=== PATIENT | female | born 1955 | race Caucasian/White ===

== ENCOUNTER 2019-04-19 09:55 | Emergency (ER) | payer MEDICARE ==
[~2019-04-19] VITALS: Ht 170.2 cm; Wt 100.0 kg
[2019-04-19 10:06] VITALS: Ht 170.2 cm; Wt 100.0 kg
[2019-04-19] MEDS ORDERED: HORMONE MED (10:08)
[2019-04-19] MEDS ORDERED: CHOLESTEROL MED (10:08)
[2019-04-19] MEDS ORDERED: THYROID MED (10:08)
[2019-04-19] MEDS ORDERED: HTN MED (10:08)
[2019-04-19] MEDS ORDERED: HYDROCODONE (10:09)
[2019-04-19] MEDS ORDERED: HYDROCODON-ACE1 EA10 PO (10:55)
[2019-04-19] MEDS ORDERED: AUGMENTIN 875-11 TAB PO (10:55)
[2019-04-19 11:10] VITALS: BP 155/74
== END 2019-04-19 11:13 | disposition home or self-care (01) ==
LOC: D.ER 09:55
DX: L02.214 Cutaneous abscess of groin (principal); I10 Essential (primary) hypertension

== ENCOUNTER → 2019-11-19 12:33 | Outpatient (CLI) | payer MEDICARE ==
[2019-11-13 12:18] VITALS: BMI 32.9
--- NOTE | 2019-11-19 14:24 | NUR ---
TIME PERFORMED AT 1348 BY GAETANO PITTMAN(R) AND DR MONTANEZ. LUMBAR MYELOGRAM WAS NOT COMPLETED DUE TO PATIENT BEING UNCOOPERATIVE, CRISTINA WILL ADJUST, PATIENT DID NOT COMPLETE EXAM.
== END | disposition home or self-care (01) ==
LOC: D.RAD 12:33
PROVIDERS: ATTEND Neurological Surgery
DX: M54.16 Radiculopathy, lumbar region (principal); Z53.9 Procedure and treatment not carried out, unspecified reason

== ENCOUNTER 2019-12-06 08:00 | Outpatient (CLI) | payer MEDICARE ==
[~2019-12-06 08:00] MED LIST: AUGMENTIN 875-11 TAB PO; CHOLESTEROL MED; HORMONE MED; HTN MED; HYDROCODON-ACE1 EA10 PO; HYDROCODONE; LEVOTHYROXINE; METHOCARBAMOL750 MG NG; MUCINEX DM ER1 EAC1 PO; VOLTAREN25 MG PO
[2019-12-06] MEDS ORDERED: HYDROCHLOROTH12.5 M1 PO (12:58)
[2019-12-06] MEDS ORDERED: NORVASC10 MG PO (12:58)
[2019-12-06] MEDS ORDERED: ANORO ELLIPTA1 EACH INH (12:58)
[2019-12-06] MEDS ORDERED: ESTRACE1 MG PO (12:58)
[2019-12-06] MEDS ORDERED: CRESTOR20 MG PO (12:59)
[2019-12-06] MEDS ORDERED: TIROSINT50 MCG PO (12:59)
[2019-12-06] MEDS ORDERED: OMEPRAZOLE40 MG PO (12:59)
[2019-12-06 13:16] LABS: BASOPHILS 0.2 % (0-2); EOSINOPHILS 2.6 % (0-7); HEMATOCRIT 43.6 % (36.0-48.0); HEMOGLOBIN 14.8 g/dL (12-16); IMMATURE GRANULOCYTES 0.6 % (0-5); LYMPHOCYTES 35.3 % (15-50); MCH 30.8 pg (26.0-34.0); MCHC 33.9 g/dL (31.0-37.0); MCV 90.6 fL (80.0-100.0); MONOCYTES 8.3 % (2-11); RBC 4.81 10x6/uL (4.00-5.40); RDW 14.8 % (11.5-14.5); WBC 8.2 10x3/uL (4.8-10.8)
[2019-12-06 13:30] LABS: INR 0.98 (0.85-1.17)
[2019-12-06 13:31] LABS: APTT 34.1 SECONDS (22.8-39.4)
[2019-12-06 13:33] LABS: CALC OSMOLALITY 267 mosm/kg (275-300); CALCIUM 8.4 mg/dL (8.5-10.1); CARBON DIOXIDE 30.3 mmol/L (21.0-32.0); CHLORIDE - SERUM 96 mmol/L (98-107); CREATININE - SERUM 0.8 mg/dL (0.6-1.3); GLUCOSE 93 mg/dL (74-106); POTASSIUM - SERUM 4.3 mmol/L (3.5-5.1); SODIUM 134 mmol/L (136-145); UREA NITROGEN 13 mg/dL (7-18); eGFR NON AFRICAN AMERICAN 77 mL/min (90-120)
[2019-12-06 14:11] LABS: PLATELET COUNT 298 10x3/uL (130-400)
[2020-01-05 11:15] VITALS: BMI 36.8
== END 2019-12-06 08:01 | disposition home or self-care (01) ==
LOC: D.PAN 08:00 → D.SDCHOLD 12-11 08:30 → EDSTATUS 12-25 13:00 → D.SDCHOLD 12-25 13:00
PROVIDERS: Anesthesiology; ATTEND Surgery
DX: C18.9 Malignant neoplasm of colon, unspecified (principal); I10 Essential (primary) hypertension

== ENCOUNTER → 2019-12-25 10:11 | Outpatient (CLI) | payer MEDICARE ==
[2019-11-13 12:18] VITALS: BMI 32.9
[~2019-12-25 10:11] MED LIST changes: +ANORO ELLIPTA1 EACH INH; +CRESTOR20 MG PO; +ESTRACE1 MG PO; +HYDROCHLOROTH12.5 M1 PO; +NORVASC10 MG PO; +OMEPRAZOLE40 MG PO; +TIROSINT50 MCG PO
== END | disposition home or self-care (01) ==
LOC: D.HCCECHO 10:11
PROVIDERS: ATTEND Internal Medicine Interventional Cardiology
DX: I20.9 Angina pectoris, unspecified (principal)

== ENCOUNTER 2020-01-01 11:48 | Outpatient (CLI) | payer MEDICARE ==
[~2020-01-01] VITALS: Ht 170.2 cm; Wt 107.7 kg
--- NOTE | ~2020-01-01 | OP ---
PATIENT NAME: KEV LAMBERT MEDICAL RECORD: [id number] :[birth year] LOCATION:D.CAT ADMISSION DATE: SURGEON: AMBER GARCIA MD DATE OF OPERATION: 01/01/2020 PROCEDURE: Left heart catheterization, selective coronary angiography, right femoral artery approach. CATHETERS: A 5-Malagasy sheath, 5/4 left and right Dave, 5/4 pig. The procedure was well tolerated. The patient was returned to [place]. Sheath was removed. ExoSeal device placed. FINDINGS: Left ventriculography in 30-degree PATE view, normal wall motion, normal systolic function. CORONARY ANATOMY: LEFT MAIN: Left main is free of disease. LAD: Free of disease in the diagonal system. CIRCUMFLEX: Free of disease in the marginal system. RIGHT CORONARY ARTERY: Dominant artery, gives rise to PDA, free of disease. IMPRESSION: Normal left ventricular systolic function, normal coronary anatomy. TRANSINT:[id number] Voice Confirmation ID: [id number] DOCUMENT ID: [id number] AMBER GARCIA MD CC: [id number] DICTATION DATE: 01/01/20 1434 ACCOUNTANT MACHINE PROCESSING: 01/01/20 1708 DEP CLI 01/01/20 [place] [id number] [place] [id number]
--- NOTE | ~2020-01-01 | HEMODYNAMI ---
PATIENT:KEV LAMBERT MEDICAL RECORD: [id number] : 59 LOCATION:DREMA ADMISSION DATE: 01/01/20 Generatedon:01/01/202014:31 Patient name: KEV LAMBERT Patient #: [id number] SSN: [id number] : 1955 Date of study: 01/01/2020 Page: Of Hemodynamic Procedure Report Patient Data Patient Demographics Procedure consent was obtained First Name: KEV Gender: Female Last Name: PETRA : 1955 Patient #: [id number] Age: 64 year(s) Race: SSN: [id number] Additional ID: [id number] Contact details Address: [address] [place] [address] [place] State: [place] City: [facility] Zip code: [address] Past Medical History Allergies: No known allergies Admission Admission Data Admission Date: 01/01/2020 Admission Time: 11:48 Arrival Date: 01/01/2020 Arrival Time: 0:00 Admit Source: Other Insurance Payor: Medicare [facility] #: [id number] Height (in.): 67 BSA: 2.17 (m2) Height (cm.): 170.18 BMI: 37.04 (kg/m2) Weight (lbs.): 236.49 Weight (kg.): 107.27 Lab Results Lab Result Date: 01/01/2020 Lab Result Time: 0:00 Biochemistry Name Units Result Min Max BUN mg/dl 18 --(---*)-- 7 18 Creatinine mg/dl 0.9 --(-*--)-- 0.6 1.3 eGFR ml/min 67.75046 *-(----)-- 90 120 NONAFRICAN CBC Name Units Result Min Max Hematocrit % 43.2 --(*---)-- 42 54 Hemoglobin g/dl 14 --(*---)-- 13.5 17.5 Procedure Procedure Types Cath Procedure Diagnostic Procedure [facility] w/Coronaries Sedation Charges Moderate Sedation up to 15 minutes Procedure Description Procedure Date Procedure Date: 01/01/2020 Procedure Start Time: 14:18 Procedure End Time: 14:29 Procedure Staff Name Function Antonio Chahal MD Performing Physician Eve White RT Monitor Stacey Veliz RT Scrub Mali Mattson RN Nurse Jessica López RT Composition Tile Layer Indication Angina Procedure Data Cath Procedure Fluoroscopy Diagnostic fluoroscopy Total fluoroscopy Time: 1.3 time: 1.3 min min Diagnostic fluoroscopy Total fluoroscopy dose: 548 dose: 548 mGy mGy Contrast Material Contrast Material Type Amount (ml) Isovue 300 59 Entry Location Entry Primary Successful Side Size Upsize Upsize Entry Closure Succes sful Closure Location (Fr) 1 (Fr) 2 (Fr) Remarks Device Remarks Femoral Right 5 Fr Exoseal artery Estimated blood loss: 5 ml Diagnostic catheters Device Type Used For End Catheter Placement MULTIPACK JL 4.0 5Fr Left Coronary catheter Angiography MULTIPACK 3DRC 5Fr Right Coronary catheter Angiography MULTIPACK Pigtail 5 Fr LV Angiography catheter Procedure Complications No complications Procedure Medications Medication Administration Route Dosage 0.9% NaCl I.V. 100 ml/hr Oxygen etCO2 Nasal cannula 2 l/min Lidocaine 2% added to field 20 Heparin Flush Bag added to field 2 bags (1000units/500ml NS) Versed I.V. 2 mg Fentanyl I.V. 50 mcg Fentanyl I.V. 50 mcg Hemodynamics Rest BSA: 2.17 (m2) HGB: 14 (g/dl) O2 Consumption: Estimated: 160.26 (ml/min) O2 Cons umption indexed: Estimated:73.85 (ml/min/m) Heart Rate: 16 (bpm) Pressure Samples Time Site Value (mmHg) Purpose Heart Use Rate(bpm) 14:23 LV 120/14,20 Snapshot 71 Gradients Valve Time Site Site Mean SEP/DFP Peak To Heart Use 1 2 (mmHg) (sec/min) Peak Rate (mmHg) (bpm) Aortic 14:24 LV AO 65 Snapshots Pre Cath Intra NCS Post Cath Vital Signs Time Heart Resp SPO2 etCO2 NIBP (mmHg) Rhythm Pain Sedation Rate (ipm) (%) (mmHg) Status Level (bpm) 14:08:02 72 12 97 12 130/85(126) NSR 0 (11) 10(A) , No pain 14:12:16 64 18 96 4.4 144/77(119) NSR 0 (11) 10(A) , No pain 14:16:33 64 16 96 20 131/72(108) NSR 0 (11) 10(A) , No pain 14:20:44 63 12 97 0 129/67(109) NSR 0 (11) 10(A) , No pain 14:24:56 64 25 96 23.1 113/69(104) NSR 0 (11) 10(A) , No pain 14:29:04 61 8 95 0 119/77(109) NSR 0 (11) 10(A) , No pain Medications Time Medication Route Dose Verified Delivered Reason Notes Eff ectiveness by by 14:07:06 0.9% NaCl I.V. 100 Antonio Mali used for ml/hr Itrso Srinivasan procedure MD FITZPATRICK 14:07:13 Oxygen etCO2 2 Antonio Buchanana [facility] for [facility]al l[facility] MD FITZPAT[facility]ICK 14:07:18 Lidocaine 2% added 20ml Antonio Alvarez for local to vial [facility] anesthetic field MD VOGEL 14:07:21 Heparin Flush added 2 Antonio Armstrongory used for Bag to bags [facility] procedure (1000units/500ml field MD VOGEL NS) 14:16:20 Versed I.V. 2 mg Antonio Mali for Tirso Srinivasan sedation MD FITZPATRICK 14:16:29 Fentanyl I.V. 50 Antonio Mali for mcg [place] Srinivasan sedation MD FITZPATRICK 14:20:29 Fentanyl I.V. 50 Antonio Valerayla for mcg Tirso Srinivasan sedation MD FITZPATRICKtransit coach operator Log Time Note 13:47:58 Diagnostic Cath Status : Elective 13:48:23 Indication : Angina 13:48:33 Arrival Date: 01/01/2020 12:00:00 AM 13:48:34 Admit Source: Other 13:48:41 Insurance Payor : Medicare 13:49:11 Patient Height : 67 inches 13:49:17 Patient Weight : 236.49 lbs 13:49:38 Informed consent obtained and on chart 13:49:58 Patient allergic to No known allergies 13:52:59 Lab Result : BUN 18 mg/dl 13:52:59 Lab Result : eGFR NONAFRICAN 67.91633 ml/min 13:52:59 Lab Result : Hemoglobin 14 g/dl 13:52:59 Lab Result : Creatinine 0.9 mg/dl 13:52:59 Lab Result : Hematocrit 43.2 % 13:53:39 Procedure Status Elective Heart Cath (OP). 13:53:41 Time tracking: Regular hours (M-F 7:00 - 5:00) 13:53:47 Plan of Care:Hemodynamics will remain stable., Cardiac rhythm will remain stable., Comfort level will be maintained., Respiratory function will remain adequate., Patient/ family verbilizes understanding of procedure., Procedure tolerated without complication., Recovers from procedure without complications.. 13:54:21 Jessica López RT(R) sent for patient. Start room use. 13:54:42 H&P Date Dictated: 12/20/2019 Within 30 days and on chart.. 13:54:52 Pre-procedure instructions explained to patient. 13:54:53 Pre-op teaching completed and patient verbalized understanding. 13:54:55 Family unavailable. 13:54:57 Patient NPO since Midnight. 13:55:01 Alarms reviewed by R. N. 13:55:02 Sharps counted by scrub and verified by R.N. 13:55:04 Lab results completed and on chart. 13:55:44 ACC Patient presents with Stable Angina CCS Anginal Class 2--Slight limitation of ordinary activity. 13:55:50 Patient received from Pre/Post Procedure Room to [facility] 2 Alert and oriented. Tansferred to table in Supine position. 13:55:51 Warm blankets applied, and kristen hugger turned on for patient comfort. 13:55:52 Correct patient and procedure confirmed by team. 13:55:52 ECG and BP/O2 sat monitors applied to patient. 14:06:59 Vital chart was started 14:07:06 0.9% NaCl 100 ml/hr I.V. was administered by Mali Mattson RN; used for procedure; Verbal order read back and verified. 14:07:13 Oxygen 2 l/min etCO2 Nasal cannula was administered by Mali Mattson RN ; used for procedure; Verbal order read back and verified. 14:07:18 Lidocaine 2% 20ml vial added to field was administered by Antonio Chahal MD; for local anesthetic; Verbal order read back and verified. 14:07:21 Heparin Flush Bag (1000units/500ml NS) 2 bags added to field was administered by Antonio Chahal MD; used for procedure; Verbal order read back and verified. 14:07:52 Baseline sample Acquired. 14:09:46 Baseline sample Acquired. 14:10:30 Full Disclosure recording started 14:10:31 - 14:10:38 Is the patient allergic to Iodine/contrast media? No. 14:10:42 Was the patient premedicated? Yes 14:10:45 Is patient on blood thinner?No 14:10:51 Patient diabetic? No. 14:11:36 ----Pre-sedation anethsthesia assessment.---- 14:11:42 Previous problem with sedation/anesthesia? No ? 14:11:44 Snore? Yes 14:11:47 Sleep apnea? No 14:11:49 Deviated septum? No 14:11:56 Opens mouth fully? Yes 14:11:58 Sticks out tongue? Yes 14:12:01 Airway obstruction? No ? 14:12:04 Dentures? No ? 14:12:10 Pre procedure: right dorsailis pedis pulse 1+ Palpable, but thready & weak; easily obliterated 14:12:28 IV patent on arrival in left forearm with 0.9% NaCl at KVO. 14:12:45 Right groin area was prepped with chlora-prep and draped in sterile fashion 14:14:29 Stress Test: yes; abnormal INFERIORLY 14:14:55 Rhythm: sinus rhythm 14:15:04 Physician arrived 14:15:05 --------ALL STOP TIME OUT------ 14:15:05 Final Timeout: patient, procedure, and site verified with staff and physician. All members of the team are in agreement. 14:15:08 Right groin site verified by team. 14:15:14 Fire Safety Assessment: A--An alcohol-based skin anteseptic being used preoperatively., C--Open oxygen or nitrous oxide is being used., D--An ESU, laser, or fiber-optic light is being used. 14:15:19 Physical assessment completed. ASA score P 2 - A patient with mild systemic disease as per Antonio Chahal MD. 14:15:25 2) 60-89 Mildly reduced kidney function, and other findings (as for stage 1) point to kidney disease. 14:15:30 Maximum allowable contrast dose (3.7 X eGFR X 0.75)186 ml. 14:15:39 Sedation plan: IV Moderate Sedation Medication:Versed, Fentanyl 14:15:46 Use device set Femoral Dx 14:15:48 ACIST Syringe (95978) opened to sterile field. 14:15:49 Bag Decanter (2002S) opened to sterile field. 14:15:49 Medline Cath Pack ([id number]) opened to sterile field. 14:15:51 ACIST Hand Control (29982) opened to sterile field. 14:15:51 ACIST Manifold (81964) opened to sterile field. 14:15:52 DIAGNOSTIC Multipack 5Fr catheter set (NN2101) opened to sterile field. 14:15:53 Tegaderm 4 x 4 (1626W) opened to sterile field. 14:15:55 SHEATH 5FR Kohler (OPV256) opened to sterile field. 14:15:56 EMERALD Guide Wire (997-023) opened to sterile field. 14:16:20 Versed 2 mg I.V. was administered by Mali Mattson RN; for sedation; Verbal order read back and verified. 14:16:29 Fentanyl 50 mcg I.V. was administered by Mali Mattson RN; for sedation ; Verbal order read back and verified. 14:18:08 Procedure started. 14:18:14 Local anesthetic to right femoral artery with Lidocaine 2% by Antonio Saab MD.INITIAL ACCESS ONLY 14:19:10 A 5 Fr sheath was inserted into the Right Femoral artery 14:19:14 Zero performed for pressure channel P1 14:19:28 A MULTIPACK JL 4.0 5Fr catheter was advanced over the wire and used for Left Coronary Angiography. 14:19:56 Injector settings: Ml/sec: 3, Volume: 6, 14:20:29 Fentanyl 50 mcg I.V. was administered by Mali Mattson RN; for sedation ; Verbal order read back and verified. 14:20:47 LCA angiography performed. 14:21:51 Catheter removed. 14:22:05 A MULTIPACK 3DRC 5Fr catheter was advanced over the wire and used for Right Coronary Angiography. 14:22:14 Injector settings: Ml/sec: 3, Volume: 6, 14:22:52 PT FAMILLY CONTACTED AT START OF PROCEDURE. 14:22:57 Catheter removed. 14:23:04 A MULTIPACK Pigtail 5 Fr catheter was advanced over the wire and used for LV Angiography. 14:23:13 Injector settings: Ml/sec: 5, Volume: 15, 14:23:16 LV gram done using PATE 14:23:57 EF : 55 % 14:24:09 LV hemodynamics recorded. 14:24:11 Catheter removed. 14:24:25 EXOSEAL 5Fr (EX500) opened to sterile field. 14:25:17 Sheath removed intact; hemostasis achieved with Exoseal to the Right Femoral artery. 14:25:23 Procedure ended.(Physican Out) 14:27:09 SCIA NOT WORKING EVEN AFTER PROCEDURE 14:27:21 Contrast amount:Isovue 300 59ml. 14:27:32 Fluoroscopy time 01.30 minutes. 14:27:38 Fluoroscopy dose: 548 mGy 14:27:38 Flurop Dose total: 548 14:27:46 Dose Area Product 77296 mGy/cm. 14:27:50 Maximum allowable dose exceeded? No. 14:27:52 Sharps counted by scrub and verified by R.N. 14:27:54 Insertion/operative site no bleeding no hematoma. 14:27:59 Post-op/insertion site Right Femoral artery dressed using a 4 x 4 and Tegaderm. 14:28:04 Post right femoral artery:stable 14:28:09 Post Procedure Pulses reassessed and unchanged 14:28:12 Post-procedure physical assessment completed. ASA score P 2 - A patient with mild systemic disease as per Antonio Chahal MD. 14:28:16 Post procedure rhythm: unchanged. 14:28:20 Estimated blood loss: 5 ml 14:28:21 Post procedure instruction explained to patient.Patient verbalizes understanding. 14:28:22 Patient needs reinforcement of post procedure teaching. 14:28:39 Procedure type changed to Cath procedure, Diagnostic procedure, LHC, LH C w/Coronaries, Sedation Charges, Moderate Sedation up to 15 minutes 14:28:41 Procedure and supply charges have been captured, reviewed, submitted an d are correct. 14:29:09 Procedure Complication : No complications 14:29:13 Vital chart was stopped 14:29:15 [facility] Findings: mild to moderate CAD (<70%) 14:29:20 Operative report dictated upon procedure completion. 14:29:21 See physician's report for complete and final results. 14:29:23 Report given to Pre/Post Procedure Room. 14:29:28 Patient transfered to Pre/Post Procedure Room with Stretcher. 14:29:31 Procedure ended. 14:29:31 Full Disclosure recording stopped 14:29:42 End room use (Document Last) Device Usage Item Name Manufacture Quantity Catalog Hospital Part Current Minimal L ot# / Number Charge Number Stock Stock Serial# Code ACIST Acist 1 92950 758965 189321 264319 20 Syringe Medical (55171) Systems Inc Bag Microtek 1 133724 60390 019275 5 Decanter Medical Inc. () Medline Medline 1 [id number] 363935 28280 065506 5 Cath Pack ([id number]) ACIST Hand Acist 1 24067 828054 610591 734881 5 Control Medical (93269) Systems Inc ACIST Acist 1 48089 250962 988331 216389 5 Manifold Medical (63542) Systems Inc DIAGNOSTIC Cardinal 1 [id number] 137312 92944 497018 30 Multipack Health 5Fr catheter set (FV9436) Tegaderm 4 3M 1 1626W 445608 973355 904051 5 x 4 (1626W) SHEATH 5FR Terumo 1 ZMT983 133901 947636 285008 5 Kohler (FUQ395) EMERALD Cardinal 1 502-455 669366 846353 864310 5 Guide Wire Health (502-047) MULTIPACK Cardinal 1 736606 5 JL 4.0 5Fr Health catheter MULTIPACK Cardinal 1 220656 5 3DRC 5Fr Health catheter MULTIPACK Cardinal 1 912731 5 Pigtail 5 Health Fr catheter EXOSEAL 5Fr Cardinal 1 EX500 128667 236514 858086 10 (EX500) Health Signature Audit [place] Stage Time Signature Unsigned Intra-Procedure 01/01/2020 Eve 2:30:02 PM Cindy RT(R) (CV) Intra-Procedure 01/01/2020 Mali Mattson 2:30:40 PM RN Intra-Procedure 01/01/2020 Antonio Hughes 2:31:07 PM [facility] VOGEL Signatures Performing Physician : Signature : Antonio Chahal MD Date : Time : Monitor : Eve Signature : Cindy RT Date : Time : Nurse : Mali Mattson RN Signature : Date : Time : [facility] [address] [place] [address]
[2020-01-01] MEDS ORDERED: VIBRAMYCIN50 MG PO (12:20)
[2020-01-01] MEDS ORDERED: OXYBUTYNIN CHLOR5 M1 PO (12:20)
[2020-01-01] MEDS ORDERED: DESMOPRESSIN PO (12:20)
[2020-01-01 12:46] VITALS: BP 130/97; Ht 170.2 cm; Wt 107.7 kg
[2020-01-01 12:51] LABS: BASOPHILS 0.4 % (0-2); EOSINOPHILS 2.5 % (0-7); HEMATOCRIT 43.2 % (36.0-48.0); IMMATURE GRANULOCYTES 0.4 % (0-5); LYMPHOCYTES 34.4 % (15-50); MCHC 32.4 g/dL (31.0-37.0); MCV 92.7 fL (80.0-100.0); MEAN PLATELET VOLUME 10.1 fL (7.4-10.4); MONOCYTES 8.4 % (2-11); NEUTROPHILS 53.9 % (40-80); PLATELET COUNT 246 10x3/uL (130-400); RBC 4.66 10x6/uL (4.00-5.40); RDW 15.2 % (11.5-14.5); WBC 7.5 10x3/uL (4.8-10.8)
[2020-01-01 13:07] LABS: ANION GAP 9.7 mmol/L (8-16); CALCIUM 8.3 mg/dL (8.5-10.1); CARBON DIOXIDE 29.4 mmol/L (21.0-32.0); CHOL - HDL RATIO 2.9 ratio (2.3-4.1); CREATININE - SERUM 0.9 mg/dL (0.6-1.3); LDL-HDL RATIO 1.4 ratio (1.5-3.5); POTASSIUM - SERUM 4.1 mmol/L (3.5-5.1)
--- NOTE | 2020-01-01 14:45 | NUR ---
REC TO ROOM FROM PLASTIC WELDER VIA STRETCHER. MONITORING INITIATED. BP 118/78, HR SR 61, SAT 95% ON 2LNC. R GROIN TEGADERM AND 4X4 CDI, SOFT. C/O TENDERNESS TO GROIN WITH PALPATION. NO S/S BLEEDING OR HEMATOMA. PPP 2+. REPORTS HX OF BACK INJURY, CHRONIC PAIN, AND RLE SCIATIC PAIN. EXPL NEED TO KEEP HEAD ON PILLOW AND RLE RELAXED OVER THE NEXT HOUR TO HELP PREVENT BLEEDING. STATES "THAT IS EASIER SAID THAN DONE"/
--- NOTE | 2020-01-01 15:28 | NUR ---
R GROIN CDI, SOFT. NO S/S BLEEDING OR HEMATOMA. REPOSITIONED WITH PAD UNDER PT TO SHIFT WEIGHT ON BED FOR COMFORT. PPP. SB 58, BP 130/73, SAT 93% 2LNC. MARTIN SIPS DIET SODA.
--- NOTE | 2020-01-01 15:45 | NUR ---
R GROIN CDI, SOFT, NO S/S BLEEDING OR HEMATOMA. RAISED HOB TO PT COMFORT, PROVIDED DRINK AND SANDWICH. 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
--- NOTE | 2020-01-01 16:15 | NUR ---
R GROIN CDI, SOFT, NO S/S HEMATOMA OR BLEEDING. PT REPORTS MORE COMFORTABLE WITH HOB RAISED. IV DC TIP INTACT, MONITORING DC, DC TEACHING DONE. PT DRESSING.
--- NOTE | 2020-01-01 16:33 | NUR ---
PT DC HOME VIA WHEELCHAIR TO PRIVATE CAR W AUTOMOBILE BRAKE BONDER LUCIANA. PT HAS ALL BELONGINGS.
== END 2020-01-01 16:33 | disposition home or self-care (01) ==
LOC: D.CATH 11:48
PROVIDERS: ATTEND Internal Medicine Interventional Cardiology
DX: I20.9 Angina pectoris, unspecified (principal); I10 Essential (primary) hypertension; E78.5 Hyperlipidemia, unspecified; R94.31 Abnormal electrocardiogram [ECG] [EKG]; R01.1 Cardiac murmur, unspecified; Z72.0 Tobacco use

== ENCOUNTER 2020-01-02 15:01 | Inpatient (IN) | payer MEDICARE ==
[~2020-01-02] VITALS: Ht 172.7 cm; Wt 109.8 kg
--- NOTE | ~2020-01-02 | OP ---
PATIENT NAME: KEV LAMBERT MEDICAL RECORD: [id number] :59 LOCATION:.[facility] D.2314 ADMISSION DATE:01/04/20 SURGEON: JUAQUIN ZAMBRANO MD DATE OF OPERATION: 01/04/2020 PREOPERATIVE DIAGNOSES: 1. Right renal mass. 2. Adenocarcinoma of the hepatic flexure. 3. Hypertension. 4. Hypercholesterolemia. 5. Tobacco dependence syndrome. 6. Chronic obstructive pulmonary disease. POSTOPERATIVE DIAGNOSES: 1. Right renal mass. 2. Adenocarcinoma of the hepatic flexure. 3. Hypertension. 4. Hypercholesterolemia. 5. Tobacco dependence syndrome. 6. Chronic obstructive pulmonary disease. PROCEDURE: 1. Hand-assisted laparoscopic right hemicolectomy. 2. Hand-assisted laparoscopic right nephrectomy. SURGEON: Juaquin Zambrano MD and I assisted on a nephrectomy. CO-SURGEON: Dr. Astudillo, who also assisted on the hemicolectomy. REPORT OF PROCEDURE: The patient's abdomen was prepped and draped in sterile fashion. A transverse oblique incision was made in the right lower quadrant. Electrocautery was used to dissect through the subcutaneous tissues to the fascia. We transected the fascia obliquely and then split the rectus musculature and penetrated the abdomen through the peritoneum. A Gelport was inserted with a 5-mm trocar within it. With this in place, we were able to place a 12-mm trocar in the midline just above the umbilicus and another 12-mm trocar in the midline of the epigastrium. We began the dissection by mobilizing the patient's right colon. I could see the tattoo was present near the hepatic flexure from previous colonoscopy. There were no distinct masses present throughout the rest of the abdominal cavity. We mobilized the right colon by taking down the white line of Toldt and coming through the avascular plane, we were able to pull this colon medially. There were some adhesions present down in the pelvis from some previous surgeries, which appeared to be a hysterectomy. These were taken down carefully using electrocautery. We continued our dissection of the omentum over the transverse colon and eventually we were able to visualize the patient's duodenum. I kocherized the duodenum and pulled this medially. At this point, we had the right colon rotated medially and good Jaswinder maneuver. Dr. Astudillo at this point came in and did a formal resection of the patient's right kidney. Once the kidney was completely removed, then I was able to eviscerate the right colon out of the wound protector of the abdomen. This colon was transected just proximal to the terminal ileum and distal to the mass in the mid transverse colon. A 75 blue load TAMARA stapler was used to transect the bowel on each end. We then took down the mesentery with sequential clamp and tie technique. This portion of bowel was sent off for permanent specimen and I could feel the mass present within it. We then performed a OPERATIVE REPORT [id number] EKV LAMBERT [id number] anastomosis of the small bowel to the transverse colon, making enterotomies in the bowel and forming a connection with the 75 blue load TAMARA stapler. The enterotomies were closed with a 30 blue load TA stapler. I then oversewed the staple lines and put a stitch in the crotch of the bowel anastomosis. We then rested this bowel into the abdominal cavity. We reentered the abdomen and thoroughly inspected to make sure there was no sign of any active bleeding, which there appeared to be none. We irrigated out the abdomen with normal saline and then placed a piece of Nu-Knit Surgicel in the space where the right kidney had been present. We inspected one last time and could see no sign of any active bleeding and there did not appear to be any bowel leakage or bowel injury. The ports and insufflation were removed using a Mahin-Ibis. The 12-mm trocar sites were closed with a 0 Vicryl. During the surgery, we had to place another 5-mm trocar in the patient's right lateral subcostal region to assist with liver retraction. We then closed the fascia of the right lower quadrant incision using a running #1 loop PDS times 2. We irrigated out the wound with normal saline and then reapproximated the subcutaneous tissues and Neo's with interrupted 3-0 Vicryl. The skin incisions were all closed with kael and dressed appropriately. COMPLICATIONS: None. CONDITION: Stable. ANESTHESIA: General endotracheal. BLOOD LOSS: Less than 100. TRANSINT:[id number] Voice Confirmation ID: [id number] DOCUMENT ID: [id number] JUAQUIN ZAMBRANO MD CC: MARIANA VAUGHAN MD, MNOIKA PETTY MD and AMBER GARCIA [id number] DICTATION DATE: 01/04/20 1143 GLASS MOLD REPAIRER: 01/04/20 1643 ADM IN [facility] [address] [id number]
[~2020-01-02 15:01] MED LIST changes: +DESMOPRESSIN PO; +OXYBUTYNIN CHLOR5 M1 PO; +VIBRAMYCIN50 MG PO
[2020-01-04] VITALS (12 sets, daily range): BP systolic 97–153; BP diastolic 54–90; BMI 35.8
[2020-01-04 05:56] LABS: BASOPHILS 0.3 % (0-2); EOSINOPHILS 2.5 % (0-7); HEMATOCRIT 43.9 % (36.0-48.0); HEMOGLOBIN 14.1 g/dL (12-16); IMMATURE GRANULOCYTES 0.2 % (0-5); LYMPHOCYTES 24.3 % (15-50); MCH 29.9 pg (26.0-34.0); MCHC 32.1 g/dL (31.0-37.0); MEAN PLATELET VOLUME 10.2 fL (7.4-10.4); MONOCYTES 8.9 % (2-11); NEUTROPHILS 63.8 % (40-80); PLATELET COUNT 272 10x3/uL (130-400); RBC 4.72 10x6/uL (4.00-5.40); RDW 15.3 % (11.5-14.5); WBC 8.7 10x3/uL (4.8-10.8)
[2020-01-04 06:09] LABS: CALC OSMOLALITY 273 mosm/kg (275-300); CARBON DIOXIDE 28.6 mmol/L (21.0-32.0); CHLORIDE - SERUM 101 mmol/L (98-107); CREATININE - SERUM 0.7 mg/dL (0.6-1.3); GLUCOSE 104 mg/dL (74-106); POTASSIUM - SERUM 3.8 mmol/L (3.5-5.1); SODIUM 138 mmol/L (136-145); UREA NITROGEN 8 mg/dL (7-18); eGFR NON AFRICAN AMERICAN 90 mL/min (90-120)
[2020-01-04 06:14] LABS: APTT 33.4 SECONDS (22.8-39.4); INR 1.05 (0.85-1.17); PROTIME 13.7 SECONDS (11.6-15.0)
--- NOTE | 2020-01-04 12:54 | NUR ---
PT ARRIVED TO ICU FROM SURGERY. VSS. WILL CONT TO FOLLOW POC
--- NOTE | 2020-01-04 15:00 | NUR ---
PAGED DUE TO PT BEING VERY ANGRY FOR NOT BEING ALLOWED WATER. ALSO NOTIFIED OF BRADYCARDIA. NO NEW ORDERS RECIEVED.
--- NOTE | 2020-01-04 17:36 | NUR ---
BEDSIDE REPORT RECEIVED. PT IN BED RESTING WITH EYES OPEN. VSS. WILL CONT TO MONITOR.
--- NOTE | 2020-01-04 19:12 | NUR ---
RECIVED SHIFT REPORT AT PT DOOR. PT IS ON DROPLET PERCAUTIONS DUE TO POSSIBLE COVID. RESULTS ARE PENDING. PT IS RESTING WITH EYES CLOSED ON HER LEFT SIDE. VSS. PERFORMED FULL-ASSESSMENT AFTER AND WILL DOCUMENT ON FLOW SHEET. GALARZA CATHETOR IS HANGING TO GRAVITY BELOW THE BLADDER WITH YELLO URINE. BED IS LOW,SIDE RIASLX2,CALL LIGHT WITHIN REACH. WILL CONTINUE TO MONITOR
--- NOTE | 2020-01-04 20:25 | NUR ---
PT USED CALL LIGHT TO WHICH HER IV PUMP WAS ALARMING. PUT ON ALL PPE AND TURNED PUMP ALARM OFF. I ALSO STARTED THE PT FIRE LIEUTENANT MARINE AT THIS TIME BECAUSE HER PAIN IS A "10/10" ON NUMERIC SCALE AND HER HR HAS COME UP FROM THE 40'S TO HIGH 60'S. PT VOICED NO OTHER CONCERNS OR NEEDS AND VOICED "THANK YOU". BED IS LOW,SIDE RAISLX2,CALL LIGHT WITHIN REACH. WILL CONITNUE TO CHLOÉ
--- NOTE | 2020-01-04 22:24 | NUR ---
PT IS RESTING IN BED WITH EYES CLOSED. VSS. BED IS LOW,SIDE RAILSX2,CALL LIGHT WITHIN REACH. WILL CONTINUE TO MONITOR
[2020-01-05] VITALS (19 sets, daily range): BP systolic 87–141; BP diastolic 46–88; Ht 172.7 cm; Wt 109.8 kg
--- NOTE | 2020-01-05 | NUR ---
PT IS RESTING IN BED WITH EYES CLOSED. I NOCKED ON HER DOOR AND SHE AWOKE EASILY AND PUT HER THUMBS UP. VSS. BED IS LOW.SIDE RAILSX2,CALL LIGHT WITHIN REACH. WILL CONITNUE TO MONITOR
--- NOTE | 2020-01-05 02:11 | NUR ---
PT IS RESTING IN BED WITH EYE CLOSED ON RIGHT SIDE. VSS. BED IS LOW,SIDE RAILSX2,CALL LIGHT WITHIN REACH. WILL CONTINUE TO MONITOR
--- NOTE | 2020-01-05 03:57 | NUR ---
PERFORMED RE-ASSESSMENT AND WILL DOC IN FLOWSHEET. I ALSO JIMENEZ AM LABS AT THIS TIME. HAD TO DO FINGERSTICKS AND USE PEDI TUBES IN ORDER TO GET BLOOD BC THE PT VEINS BLEW ON TWO ATTEMPTS. PT TOLERATED WELL WITH NO C/O. SHE ALSO WANTED TO SIT STRAIGHT UP AT THIS TIME AND I ASSISSTED MOVING HER HOB UP AND HELPED POSITION HER COMFORTABLY. PT VOICES"THANK YOU SO MUCH". VSS. BED IS LOW,SIDE RAILSX2,CALL LIGHT WITHIN REACH. WILL CONTINUE TO MONITOR
[2020-01-05 04:54] LABS: BASOPHILS 0.5 % (0-2); EOSINOPHILS 0.1 % (0-7); HEMOGLOBIN 11.7 g/dL (12-16); IMMATURE GRANULOCYTES 1.2 % (0-5); LYMPHOCYTES 9.5 % (15-50); MCH 30.4 pg (26.0-34.0); MCHC 32.5 g/dL (31.0-37.0); MCV 93.5 fL (80.0-100.0); MEAN PLATELET VOLUME 10.8 fL (7.4-10.4); MONOCYTES 8.3 % (2-11); NEUTROPHILS 80.4 % (40-80); PLATELET COUNT 218 10x3/uL (130-400); RBC 3.85 10x6/uL (4.00-5.40); RDW 15.8 % (11.5-14.5)
[2020-01-05 05:10] LABS: CARBON DIOXIDE 21.2 mmol/L (21.0-32.0); CREATININE - SERUM 1.3 mg/dL (0.6-1.3)
[2020-01-05 05:11] LABS: ANION GAP 14.8 mmol/L (8-16); CALCIUM 6.8 mg/dL (8.5-10.1)
--- NOTE | 2020-01-05 06:27 | NUR ---
PT IS RESTING IN BED WITH EYES CLOSED. DRESSED WITH PROPER PPE AND PROVIDED PT WITH ICE CHIPS AND HUNG/ADMINISTERED MEDS THAT WERE SCHEDULED AT THIS TIME. PT PUSHED CUPOLA HOIST OPERATOR BUTTON WHILE I WAS IN ROOM. VSS. NO NEEDS VOICED. BED IS LOW,SIDE RIALSX2,CALL LIGHT WITHIN REACH. WILL CONTINUE TO MONITOR
--- NOTE | 2020-01-05 07:17 | NUR ---
INFORMED OF PT CALCIUM AT THIS TIME. T.O TO CHECK ALBUMIN AT THIS TIME AND TO ALSO START LOVENOX 40MG SUB-Q EVERY 12 HOURS. T.O READ BACK CORRECT.
--- NOTE | 2020-01-05 08:31 | NUR ---
CORRECTED CA 7.8
--- NOTE | 2020-01-05 09:47 | OP ---
PATIENT NAME: KEV LAMBERT MEDICAL RECORD: [id number] :59 LOCATION:[facility] D.2314 ADMISSION DATE:01/04/20 SURGEON: JOEL BRASWELL MD DATE OF OPERATION: 01/04/2020 SURGEON: Joel Braswell MD DOCK LOADER: Juaquin Lr MD DIAGNOSES: 1. Right renal cancer in the lower pole, 3.5 cm in diameter, stage T1. 2. Colon cancer at the hepatic flexure, PROCEDURE: Laparoscopic hand-assisted right radical nephrectomy. Dr. Lr is also performing a right hemicolectomy at the same time. SPECIMENS: 1. Right kidney 2. Right hemicolon. ESTIMATED BLOOD LOSS: Less than 100 mL. CLINICAL HISTORY: This is a 64-year-old female, who recently had a colonoscopy by her GI physician, Dr. Rodrigues. He discovered a tumor in the right hemicolon. This was biopsied and found to be colon cancer. She was then referred to Dr. Lr to have surgical resection of the colon. He performed a CT scan of the abdomen and pelvis for staging. This revealed an enhancing solid right lower pole renal mass 3.5 cm in diameter. There were no liver mets. There was no retroperitoneal lymphadenopathy and there was no IVC or venous invasion with thrombus. She had a bone scan, which was also negative for metastatic disease. She comes now to have a right hemicolectomy by Dr. Lr and a right radical nephrectomy by Dr. Braswell. She was given meropenem IV phototypesetting equipment monitor to the OR. She does have severe COPD. She has a heavy smoking history. Also, recently her home care nurse had issues with coughing and she was tested for COVID-19 two days ago. Because of the possibility of risk of exposure to COVID-19, we had to follow all contact precautions on this patient. DESCRIPTION OF PROCEDURE: The patient was given induction of general anesthesia in supine position. She was then given a Santos catheter and placed into the lateral decubitus position with the right side up. She was placed at about a 45-degree angle on a beanbag. All pressure points were padded. A Schneider incision was marked out in the right lower quadrant. We will also be putting a 12-mm working port in the abdominal midline, just cranial to the umbilicus and another 12-mm working port subxiphoid for the camera. The incision was made at the Schneider site. We incised along the external oblique fascia. The muscles below were split and we got into the peritoneum. The hand access port was then placed. With direct visualization from the camera through the hand access port, we placed the other [address] Lr first mobilized the colon. The lateral peritoneum along the line of Toldt was incised. The transverse colon was also mobilized from the liver. Once the colon had been mobilized medially, the duodenum was kocherized to reveal the inferior vena cava. At this point, I proceeded to mobilize the cranial surface of the kidney and its attachment to the liver. The peritoneum here was incised. The retroperitoneal tissues posterior to the kidney were released by blunt dissection. I then came across the lower pole of the kidney. I came through a lot of retroperitoneal tissue OPERATIVE REPORT [id number] KEV LAMBERT with the cautery. At one point, I thought I did encounter the ureter, but it was not definite. Nevertheless, we went to the medial kidney. Incising the peritoneum over the medial kidney and with blunt dissection, I managed to find the vascular pedicle of the kidney. I could palpate the solitary renal artery. An Endo-TAMARA 45 with vascular load was used to transect the renal pedicle. Then, the Endo-TAMARA loads were used to transect the area of the adrenal gland from its vascular pedicle. Then, going with the Endo-TAMARA 45 up in the plane between the kidney and the liver, we transected less than 100. We transected the pedicle here. The kidney was now entirely free. It was extremely large. We had to lengthen the incision by removing the gel access port. The skin incision was lengthened to 13 cm. Previously, it had been 7.5 cm. The external oblique incision was lengthened also. The muscles were split further. An EndoCatch bag was used and the kidney was placed into the EndoCatch bag. We finally managed to get the specimen out. The area of the renal fossa was observed and no active bleeding was seen. Dr. Lr then proceeded with his hemicolectomy and once this was done the 12-mm access port sites were closed using the Mahin-Ibis device to place a 2-0 Vicryl suture. There was a 5-mm liver retraction port, which we used during the kidney. This was not closed as it will heal spontaneously without risk of herniation. A #1 looped PDS was used to close the external oblique fascia. Trinity were used to close the skin. The patient will be brought to the intensive care unit for monitoring. TRANSINT:[id number] Voice Confirmation ID: [id number] DOCUMENT ID: [id number] JOEL BRASWELL MD at 0947 CC: [id number] DICTATION DATE: 01/04/20 1144 RECREATIONAL LEADER: 01/04/20 1659 ADM IN [place] [id number] [place] [address]
--- NOTE | 2020-01-05 11:24 | NUR ---
1120: ASSISSTED UP TO CHAIR.
--- NOTE | 2020-01-05 12:28 | NUR ---
1200: ASSISTED BACK TO BED
--- NOTE | 2020-01-05 18:39 | NUR ---
REPORT RECEIVED FROM PEDRO IN ICU. PATIENT TO UNIT SOON.
--- NOTE | 2020-01-05 19:20 | NUR ---
transferred to room 2133 via bed.
--- NOTE | 2020-01-05 20:01 | NUR ---
TRANSFERED FROM ICU. ALERT AND CONFUSED. STATES YEAR 1997. DSG TO LT ABD CDI. 3 BANDAIDS TO ABD ALSO THAT ARE CDI. F/C PATENT WITH CLEAR YELLOW URINE DRAINING TO BEDSIDE DRAINAGE SYSTEM. IV TO RT FA WITH NS INFUSING AT 125CC/HR, ALSO HAS JAVA LEAD DEVELOPER WITH DILAUDID AT 0.2-10. COMPLAINING ABOUT SIZE OF THE ROOM AND STATES ITS TO SMALL FOR HER. VERY DEMANDING. REFUSES TO BE PULLED UP IN BED. STATING YA'LL ARENT PULLING ON ME". REFUSES TO BE REDIRECTED. DENIES ANY NEEDS OTHER THAN WATER AND TISSUES AT THIS TIME,
[2020-01-06 02:16] VITALS: BP 111/44
[2020-01-06 04:12] VITALS: BP 114/60
--- NOTE | 2020-01-06 07:00 | NUR ---
RECEIVED REPORT. ASSUMED CARE OF PATIENT. PATIENT REMAINS IN ISOLATION FOR SUSPECTED COVID-19 AT THIS TIME.
--- NOTE | 2020-01-06 08:16 | NUR ---
ASSISTED PATIENT OOB TO CHAIR AT BEDSIDE. PATIENT SITTING IN CHAIR ATTEMPTING TO CONSUME AM CLEAR LIQUID DIET. PATIENT COMPLAIN OF PAIN, ON HAND PACKAGER PUMP. NO DISTRESS. CALL LIGHT WITHIN REACH. F/C PATENT.
[2020-01-06 08:59] VITALS: BP 116/56
--- NOTE | 2020-01-06 11:01 | NUR ---
ASSISTED PATIENT BACK TO BED. PATIENT COMPLAIN OF ABD HURTING. PATIENT ON LOGISTICS OFFICER. PATIENT USING LOGISTICS OFFICER.
[2020-01-06 11:04] VITALS: BP 123/72
--- NOTE | 2020-01-06 12:30 | NUR ---
PATIENT RESTING IN BED WITH EYES CLOSED. RESP EVEN AND UNLABORED. NO DISTRESS.
--- NOTE | 2020-01-06 16:02 | NUR ---
PROVIDED PATIENT WITH STRAWBERRY JELLO. PATIENT CONTINUES ON CLEAR LIQUID DIET AND COMPLAINS SHE IS HUNGRY. IV FLUIDS INFUSING ORDERED. NO DISTRESS. CALL LIGHT WITHIN REACH.
--- NOTE | 2020-01-06 17:03 | NUR ---
ASSISTED PATIENT TO SIDE OF BED. PATIENT CONSUMING PM MEAL. PATIENT WANTING "SOLID" FOODS. NO DISTRESS.
--- NOTE | 2020-01-06 17:30 | NUR ---
ASSISTED PATIENT BACK TO BED. FRESH GOWN AND NEW LINENS PROVIDED. PATIENT ASSISTED FOR POSITIONING. IV FLUIDS INFUSING ORDERED AND PATIENT CONTINUES ON INVENTORY CONTROL SPECIALIST PUMP. CALL LIGHT AND TELEPHONE WITHIN REACH. NO DISTRESS.
--- NOTE | 2020-01-06 17:58 | NUR ---
DR. BRASWELL HERE FOR ROUNDS. NEW ORDER TO REMOVE FC AT THIS TIME.
--- NOTE | 2020-01-06 18:15 | NUR ---
GALARZA CATHETER REMOVED. PATIENT INSTRUCTED TO VOID BY 12MN. PATIENT VERBALIZED UNDERSTANDING OF ALL INSTRUCTIONS. PATIENT DIET ADVANCED TO FULL LIQUID AT THIS TIME ALSO, PT WILL RECEIVE FULL LIQUID DIET IN AM. CALL LIGHT AND TELEPHONE WITHIN REACH. NO DISTRESS.
[2020-01-06 20:01] VITALS: BP 138/70
--- NOTE | 2020-01-06 20:07 | NUR ---
RECEIVED UP IN BED WITH EYES OPEN AND TV ON. ALERT AND ORIENTED X4. UP WITH ASSIST. O2@ 6 LITERS PER HF CANNULA. RESP EVEN AND UNALABORED. IV TO RT HAND WITH NS INFUSING AT 125CC/HR. TELEMETRY IN PLACE. DENIES ANY NEEDS AT THIS TIME.
--- NOTE | 2020-01-06 22:00 | NUR ---
C/O EMEMIS X2. ZOFRAN GIVEN PER ORDERS. REQUIRES COMPLETE LINEN CHANGE AND GOWN. ASSISTED TO CHAIR. TRANSFERED BACK TO BED AFTER CLESN LINENS APPLIED. NOTIFIED OF NEW ORDER FOR NPO. ALL FLUIDS REMOVED FROM BEDSIDE. DENIES ANY OTHER NEEDS.
--- NOTE | 2020-01-07 03:30 | NUR ---
UP WITH ASSIST AND AMBULATED TO TOILET AND BACK TO BED WITH MIN ASSIST.
[2020-01-07 04:55] VITALS: BP 116/71
[2020-01-07 05:31] LABS: BASOPHILS 0.1 % (0-2); EOSINOPHILS 1.2 % (0-7); HEMATOCRIT 32.5 % (36.0-48.0); IMMATURE GRANULOCYTES 0.1 % (0-5); LYMPHOCYTES 13.6 % (15-50); MCH 29.2 pg (26.0-34.0); MCHC 30.8 g/dL (31.0-37.0); MEAN PLATELET VOLUME 10.4 fL (7.4-10.4); MONOCYTES 10.3 % (2-11); NEUTROPHILS 74.7 % (40-80); PLATELET COUNT 248 10x3/uL (130-400); RBC 3.42 10x6/uL (4.00-5.40); RDW 15.6 % (11.5-14.5); WBC 6.9 10x3/uL (4.8-10.8)
[2020-01-07 06:03] LABS: ALBUMIN 2.1 g/dL (3.4-5.0); ALKALINE PHOSPHATASE 55 U/L (30-120); ALT (SGPT) 30 U/L (10-68); BILIRUBIN - TOTAL 0.32 mg/dL (0.2-1.3); CALC OSMOLALITY 274 mosm/kg (275-300); CARBON DIOXIDE 25.9 mmol/L (21.0-32.0); CHLORIDE - SERUM 106 mmol/L (98-107); GLUCOSE 104 mg/dL (74-106); MAGNESIUM - SERUM 1.9 mg/dL (1.8-2.4); POTASSIUM - SERUM 3.5 mmol/L (3.5-5.1); PROTEIN - SERUM 5.8 g/dL (6.4-8.2); SODIUM 138 mmol/L (136-145); UREA NITROGEN 11 mg/dL (7-18); eGFR NON AFRICAN AMERICAN 59 mL/min (90-120)
[2020-01-07 06:11] LABS: CALCIUM 6.7 mg/dL (8.5-10.1); TROPONIN-I < 0.017 ng/mL (0.000-0.060)
[2020-01-07 07:46] VITALS: BP 136/62
--- NOTE | 2020-01-07 07:53 | NUR ---
AM MEDS GIVEN AT THIS TIME. PT IN BED A/O X4, RESP EVEN AND NONLABORED ON 6.5L. PT C/O GAS PAIN, UNABLE TO PASS GAS. RT HAND IV INFUSING NS AT 125CC/HR. AND DILAUDID CONTROL INTEGRATION ENGINEER. VITAL SIGNS STABLE, PT DENIES ANY OTHER NEEDS AT THIS TIME. CALL LIGHT IN REACH, NAD NOTED, WILL CONTINUE TO MONITOR.
--- NOTE | 2020-01-07 10:10 | NUR ---
CALCIUM GLUCONATE HUNG AT THIS TIME. HELPED PT TO BATHROOM AND BACK TO BED. ENCOURAGE PT TO SIT UP TO CHAIR, THAT PT WOULD PROBABLY HELP HER PASS SOME GAS. PT STATED " I JUST TOO MUCH I THINK I WILL STAY IN BED." PT DENIES ANY OTHER NEEDS AT THIS TIME. CALL LIGHT IN REACH, NAD NOTED,W ILL CONTINUE TO MONITOR.
--- NOTE | 2020-01-07 10:44 | NUR ---
PT TRANSFERRED TO ROOM AFTER CV-19 RESULTS NEGATIVE. RECEIVED SITTING ON SIDE OF BED. ICE CHIPS AT BEDSIDE.
--- NOTE | 2020-01-07 10:44 | NUR ---
REPORT GIVEN TO RAQUEL AND PT MOVED TO ROOM 2103.
--- NOTE | 2020-01-07 11:28 | NUR ---
CALLED PHARMACY AND SPOKE WITH CELI. ASKED ABOUT THE POTTASIUM PHOSPHATE, INFORMED THAT PHARMACIST IS IN THE PROCESS OF MIXING MEDICATION.
--- NOTE | 2020-01-07 13:58 | NUR ---
Nutrition follow-up: Pt s/p nephrectomy Continues with N/V; NPO now labs reviewed Wt: 242# No BM charted Recommend ProcalAmine PPN @ 125 ml/hr RDN following.
[2020-01-07 14:23] VITALS: BP 128/49
[2020-01-07 20:00] VITALS: BP 139/63
--- NOTE | 2020-01-07 23:04 | NUR ---
UP TO BR AND BACK TO BED WITH ASSIST. PT DENIES PAIN OR NEEDS, BED LOW, CL IN REACH.
[2020-01-08] VITALS: BP 124/45
--- NOTE | 2020-01-08 03:46 | NUR ---
I have reviewed this patient and I concur with the Shift Assessment completed by the Licensed Practical Nurse today this shift.
[2020-01-08 04:00] VITALS: BP 118/40
[2020-01-08 05:45] LABS: BASOPHILS 0 % (0-2); HEMATOCRIT 30.8 % (36.0-48.0); HEMOGLOBIN 9.8 g/dL (12-16); IMMATURE GRANULOCYTES 0.3 % (0-5); LYMPHOCYTES 15.2 % (15-50); MCH 30.2 pg (26.0-34.0); MCHC 31.8 g/dL (31.0-37.0); MCV 94.8 fL (80.0-100.0); MEAN PLATELET VOLUME 10.3 fL (7.4-10.4); MONOCYTES 13.2 % (2-11); NEUTROPHILS 68.3 % (40-80); PLATELET COUNT 292 10x3/uL (130-400); RBC 3.25 10x6/uL (4.00-5.40); RDW 15.5 % (11.5-14.5); WBC 5.9 10x3/uL (4.8-10.8)
[2020-01-08 05:55] LABS: ANION GAP 12.4 mmol/L (8-16); CARBON DIOXIDE 26.5 mmol/L (21.0-32.0); CREATININE - SERUM 1.1 mg/dL (0.6-1.3); POTASSIUM - SERUM 3.9 mmol/L (3.5-5.1)
[2020-01-08 06:04] LABS: CALCIUM 6.8 mg/dL (8.5-10.1)
--- NOTE | 2020-01-08 07:15 | NUR ---
ASSESSMENT DONE. DENIES NEEDS
[2020-01-08 08:00] VITALS: BP 111/51
--- NOTE | 2020-01-08 10:26 | NUR ---
I have reviewed this patient and I concur with the Shift Assessment completed by the Licensed Practical Nurse today this shift.
[2020-01-08 13:25] VITALS: BP 117/53
--- NOTE | 2020-01-08 19:30 | NUR ---
PT IN BED, EYES CLOSED, RESP EVEN AND UNLABORED. NO DISTRESS NOTED AT THIS TIME, CL IN REACH, SR UP X 2.
--- NOTE | 2020-01-08 20:00 | NUR ---
PT REFUSED TO HAVE IV PLACED TO RECIEVE IV CALCIUM GLUCANATE, 'S PAGED
[2020-01-08 21:12] VITALS: BP 114/47
[2020-01-09] VITALS: BP 99/43
[2020-01-09 05:17] VITALS: BP 105/48
[2020-01-09 06:00] LABS: BASOPHILS 0.2 % (0-2); EOSINOPHILS 5.1 % (0-7); HEMATOCRIT 28.7 % (36.0-48.0); IMMATURE GRANULOCYTES 0.7 % (0-5); LYMPHOCYTES 25.2 % (15-50); MCH 29.3 pg (26.0-34.0); MCHC 31.4 g/dL (31.0-37.0); MCV 93.5 fL (80.0-100.0); MEAN PLATELET VOLUME 10.1 fL (7.4-10.4); MONOCYTES 17.6 % (2-11); NEUTROPHILS 51.2 % (40-80); PLATELET COUNT 264 10x3/uL (130-400); RBC 3.07 10x6/uL (4.00-5.40); RDW 15.5 % (11.5-14.5)
[2020-01-09 06:09] LABS: WBC 4.3 10x3/uL (4.8-10.8)
[2020-01-09 06:47] LABS: ANION GAP 8.7 mmol/L (8-16); CARBON DIOXIDE 26.9 mmol/L (21.0-32.0); CREATININE - SERUM 0.9 mg/dL (0.6-1.3); POTASSIUM - SERUM 3.6 mmol/L (3.5-5.1)
[2020-01-09 07:12] LABS: CALCIUM 6.6 mg/dL (8.5-10.1)
[2020-01-09 08:03] VITALS: BP 99/38
[2020-01-09 11:35] VITALS: BP 103/56
--- NOTE | 2020-01-09 11:48 | NUR ---
WAS UNABLE TO TO GAIN IV ACCESS X2 STICKS. PT REFUSING IV AT THIS TIME. PT COMPLAINS OF PAIN PRN PAIN MEDICATION GIVEN. BED LOW CALL LIGHT WITHIN REACH WILL CONTINUE TO MONITOR.
[2020-01-09] MEDS ORDERED: HYDROCODON-ACE1 EA10 PO (12:54)
[2020-01-09 14:57] VITALS: BP 95/40
--- NOTE | 2020-01-09 15:45 | NUR ---
ASSUMED CARE FOR THIS PT. PT IS SITTING UP IN BED RESTING QUIETLY. PT MAY BE DISCHARGED LATER HOWEVER WAITING TO SEE IF SHE QUALIFIES FOR HOME OXYGEN. NO IMMEDIATE NEEDS AT THIS TIME. WILL CPOC.
--- NOTE | 2020-01-09 16:13 | NUR ---
CALLED AND REC'D DISCHARGE ORDERS. PT IS STABLE AND MAY GO HOME. PT FAILED ROOM AIR TRIAL AND WILL BE SENT HOME WITH HOME PORTABLE OXYGEN. NOTIFIED CASE MANAGEMENT. WILL BEGIN DISCHARGE WORKUP.
--- NOTE | 2020-01-09 16:43 | MORECARE ---
CASE MANAGEMENT DISCHARGE SUMMARY PATIENT: YISSEL GREGORIO UNIT: [id number] ADM DATE: 01/04/20 AGE: 64 : 59 SEX: F ROOM/BED: D.2105 AUTHOR: MARCO CORRAL PHYSICIAN: REFERRING PHYSICIAN: VANESSA ZAMBRANO MD DATE OF SERVICE: 01/09/20 Discharge Plan Patient Name: YISSEL GREGORIO [facility] [facility] 1955 Planned Disposition: Home Anticipated Discharge Date: 01/09/20 Discharge Date: Expected LOS: 5 Initial Reviewer: [id number] Initial Review Date: 01/04/2020 Generated: 01/09/20 5:43 pm External Providers External Provider: [facility] Next Contact Date: Service Request Date: Service Type: Resolution: Reviewer: Comments: Coverage Notice Reviewer: [id number] Sumanth Gonzales Notice Issued Date-Time: 01/09/2020 16:43 Notice Type: IM Discharge Notice Notice Delivered To: Patient Relationship to Patient: Self Salesperson Floor Coverings Name: Yissel Gregorio Delivery Method: - Jamee Days: Prior Verbal Notification: Recipient Understood Notice: Recipient Signature: Med Rec Note Co-signed by Attending: Coverage Notice Comment: Patient Name: YISSEL GREGORIO Page [phone] at 1643 All edits/amendments must be made on the electronic document DICTATION DATE: 01/09/201642 HOST COORDINATOR: ZEFERINO 01/09/201642 RPT#: [id number] MD DATE: STATUS: ADM IN [facility] [address] [place] [address] END OF REPORT
--- NOTE | 2020-01-09 16:58 | MORECARE ---
CASE MANAGEMENT DISCHARGE SUMMARY PATIENT: YISSEL GREGORIO UNIT: [id number] ADM DATE: 01/04/20 AGE: 64 : 59 SEX: F ROOM/BED: D.2104 AUTHOR: MARCO CORRAL PHYSICIAN: REFERRING PHYSICIAN: VANESSA ZAMBRANO MD DATE OF SERVICE: 01/09/20 Discharge Plan Patient Name: YISSEL GREGORIO Facility: [facility]:[place] : 1955 Planned Disposition: Home Anticipated Discharge Date: 01/09/20 Discharge Date: Expected LOS: 5 Initial Reviewer: [email or web address] Initial Review Date: 01/04/2020 Generated: 01/09/20 5:58 pm Coverage Notice Reviewer: [id number] Sumanth Gonzales Notice Issued Date-Time: 01/09/2020 16:43 Notice Type: IM Discharge Notice Notice Delivered To: Patient Relationship to Patient: Self Carpenter Refrigerator Name: Yissel Gregorio Delivery Method: HAND - Hand Delivered Jamee Days: Prior Verbal Notification: Recipient Understood Notice: Yes Recipient Signature: Yes Med Rec Note Co-signed by Attending: Coverage Notice Comment: DC IMM signed and on chart. Patient refused her copy Reviewer: [email or web address] Sumanth Gonzales Notice Issued Date-Time: 01/09/2020 16:44 Notice Type: Patient Choice Letter Notice Delivered To: Patient Relationship to Patient: Self Carpenter Refrigerator Name: Yissel Gregorio Delivery Method: HAND - Hand Delivered Jamee Days: Prior Verbal Notification: Recipient Understood Notice: Recipient Signature: Yes Med Rec Note Co-signed by Attending: Coverage Notice Comment: Patient Choice letter for Dave SANCHEZ, O@. Last DP export: 01/09/20 3:43 p Patient Name: YISSEL GREGORIO Page [phone] at 1658 All edits/amendments must be made on the electronic document DICTATION DATE: 01/09/201657 WELDER EXPLOSION: ZEFERINO 01/09/201657 RPT#: [id number] DC DATE: STATUS: ADM IN [facility] [address] [place] [address] END OF REPORT
--- NOTE | 2020-01-09 17:12 | MORECARE ---
CASE MANAGEMENT DISCHARGE SUMMARY PATIENT: YISSEL GREGORIO UNIT: [id number] ADM DATE: 01/04/20 AGE: 64 : 59 SEX: F ROOM/BED: D.210 AUTHOR: MARCO CORRAL PHYSICIAN: REFERRING PHYSICIAN: VANESSA ZAMBRANO MD DATE OF SERVICE: 01/09/20 Discharge Plan Patient Name: YISSEL GREGORIO Facility: [facility]:[place] : 1955 Planned Disposition: Home Anticipated Discharge Date: 01/09/20 Discharge Date: Expected LOS: 5 Initial Reviewer: [email or web address] Initial Review Date: 01/04/2020 Generated: 01/09/20 6:12 pm Comments DCP- Discharge Planning Updated by DOUGLAS: Mckenzie Gonzales on 01/09/20 4:[address] Plan: Home with O2 w/portability. Correction, Iggjs-[id number]. CM met with patient regarding DC plan. Patient lives at [facility] [address], with elevator. PCP: Dr. Rojas. Pharmacy: [facility] and caregiver will steel pickler. HHS: No, did not want. Other in-home services: Correction, Aide 3D/W/ 14/H/W. DME: cane, Electric W/C, O2 with portability from [employer], Fnzxs-mi-btpfjo.. Denies hospitalizations within the past 30 days. Patient feels safe discharging to her apartment. Emergency contact:: Dorita Villegas (dtr) [phone] ([place]). Patient's caregiver will transport her home. O2 has been delivered per [facility] and a respiratory therapist will see her tomorrow. Coverage Notice Reviewer: [id number] Sumanth Gonzales Notice Issued Date-Time: 01/09/2020 16:43 Notice Type: IM Discharge Notice Notice Delivered To: Patient Relationship to Patient: Self Edge Kitter Name: Yissel Gregorio Delivery Method: HAND - Hand Delivered Jamee Days: Prior Verbal Notification: Recipient Understood Notice: Yes Recipient Signature: Yes Med Rec Note Co-signed by Attending: Coverage Notice Comment: DC IMM signed and on chart. Patient refused her copy Reviewer: [id number] Sumanth Gonzales Notice Issued Date-Time: 01/09/2020 16:44 Notice Type: Patient Choice Letter Notice Delivered To: Patient Relationship to Patient: Self Edge Kitter Name: Yissel Gregorio Delivery Method: HAND - Hand Delivered Jamee Days: Prior Verbal Notification: Recipient Understood Notice: Recipient Signature: Yes Med Rec Note Co-signed by Attending: Coverage Notice Comment: Patient Choice letter for [facility] DME, O@. Last DP export: 01/09/20 3:58 p Patient Name: YISSEL GREGORIO Page [phone] at 1712 All edits/amendments must be made on the electronic document DICTATION DATE: 01/09/201711 RADIO PERSONALITY: ZEFERINO 01/09/201711 RPT#: [id number] DC DATE: STATUS: ADM IN [facility] [address] [place] [address] END OF REPORT
--- NOTE | 2020-01-09 17:19 | MORECARE ---
CASE MANAGEMENT DISCHARGE SUMMARY PATIENT: YISSEL GREGORIO UNIT: [id number] ADM DATE: 01/04/20 AGE: 64 : 59 SEX: F ROOM/BED: D.2104 AUTHOR: SHAYNA,DOC PHYSICIAN: REFERRING PHYSICIAN: VANESSA ZAMBRANO MD DATE OF SERVICE: 01/09/20 Discharge Plan Patient Name: YISSEL GREGORIO Facility: [facility]:[place] : 1955 Planned Disposition: Home Anticipated Discharge Date: 01/09/20 Discharge Date: Expected LOS: 5 Initial Reviewer: [email or web address] Initial Review Date: 01/04/2020 Generated: 01/09/20 6:19 pm Comments DCP- Discharge Planning Updated by [email or web address]: Mckenzie Gonzales on 01/09/20 4:[address] Plan: Home with O2 w/portability. Longterm, Umpve-ch-dxmvik. CM met with patient regarding DC plan. Patient lives at [facility] [address], with elevator. PCP: Dr. Rojas. Pharmacy: [facility] and caregiver will pick up driver. HHS: No, did not want. Other in-home services: Longterm, Aide 3D/W/ 14/H/W. DME: cane, Electric W/C, O2 with portability from [facility], Phqla-wg-kwdhpr.. Denies hospitalizations within the past 30 days. Patient feels safe discharging to her apartment. Emergency contact:: Dorita Walshjulian (dtr) [phone] ([place]). Patient's caregiver will transport her home. O2 has been delivered per [facility] and a respiratory therapist will see her tomorrow. DCPIA - Discharge Planning Initial Assessment Updated by [id number]: Mckenzie Gonzales on 01/09/20 5:17 pm * Is the patient Alert and Oriented? Yes * How many steps to enter\exit or inside your home? * PCP Dr. Rojas * Pharmacy [facility] * Preadmission Environment Home Alone * ADLs Partial Dependent * Equipment Cane Oxygen Power Chair or Electric Scooter * Other Equipment Portable O2 * List name and contact numbers for known caregivers / representatives who currently or will assist patient after discharge: Dorita Villegas (dtr) [phone] * Verbal permission to speak to the caregivers and representatives has been obtained from the patient. Yes * Community resources currently utilized Meals on Wheels Private Duty Care * Please name any agencies selected above. Longterm 3D/W Total 14H * Additional services required to return to the preadmission environment? Yes * Can the patient safely return to the preadmission environment? Yes * Has this patient been hospitalized within the prior 30 days at any hospital? No Coverage Notice Reviewer: [id number] Gonzales Notice Issued Date-Time: 01/09/2020 16:43 Notice Type: IM Discharge Notice Notice Delivered To: Patient Relationship to Patient: Self Accounting Professional Name: Yissel Gregorio Delivery Method: HAND - Hand Delivered Jamee Days: Prior Verbal Notification: Recipient Understood Notice: Yes Recipient Signature: Yes Med Rec Note Co-signed by Attending: Coverage Notice Comment: DC IMM signed and on chart. Patient refused her copy Reviewer: [id number] Sumanth Gonzales Notice Issued Date-Time: 01/09/2020 16:44 Notice Type: Patient Choice Letter Notice Delivered To: Patient Relationship to Patient: Self Accounting Professional Name: Yissel Gregorio Delivery Method: HAND - Hand Delivered Jamee Days: Prior Verbal Notification: Recipient Understood Notice: Recipient Signature: Yes Med Rec Note Co-signed by Attending: Coverage Notice Comment: Patient Choice letter for Jamilah Dunaway@. Last DP export: 01/09/20 3:58 p Patient Name: YISSEL GREGORIO Page [phone] at 1717 All edits/amendments must be made on the electronic document DICTATION DATE: 01/09/201718 CANDLEMAKER: ZEFERINO 01/09/201718 RPT#: [id number] DC DATE: STATUS: ADM IN [facility] [address] [place] [address] END OF REPORT
--- NOTE | 2020-01-09 17:25 | NUR ---
PT HAD OXYGEN DELIVERED AND IS READY TO BE DISCHARGED. DISCHARGED TEACHING PROVIDED AND PAPERS SIGNED. PT VERBALIZED UNDERSTANDING AND DENIES ANY QUESTIONS OR CONCERNS. ALL BELONGINGS COLLECTED AND BAGGED FOR PT. PTS CAREGIVER EN ROUTE TO PICK HER UP. WILL CTM.
== END 2020-01-09 17:57 | disposition home or self-care (01) | DRG 330 ==
LOC: D.M2 01-04 05:31 → D.SDCHOLD 01-04 05:31 → D.ICU 01-04 12:12 → D.M2 01-05 19:21
PROVIDERS: Anesthesiology; Surgery; Urology; ADMIT Surgery; ATTEND Surgery
PROC: 0DTF0ZZ Resection of Right Large Intestine, Open Approach (ICD-10-PCS; principal; 2020-01-04 07:30)
PROC: 0TT00ZZ Resection of Right Kidney, Open Approach (ICD-10-PCS; 2020-01-04 07:30)
DX: C18.3 Malignant neoplasm of hepatic flexure (principal); C64.1 Malignant neoplasm of right kidney, except renal pelvis; J98.11 Atelectasis

== ENCOUNTER → 2020-01-03 09:48 | Outpatient (CLI) | payer MEDICARE ==
[2020-01-01 12:46] VITALS: BMI 37.2
== END | disposition home or self-care (01) ==
LOC: D.NM 09:48
PROVIDERS: ATTEND Urology
DX: C64.9 Malignant neoplasm of unspecified kidney, except renal pelvis (principal)

== ENCOUNTER 2020-03-06 05:08 | Day surgery (SDC) | payer MEDICARE ==
[~2020-03-06] VITALS: Ht 172.7 cm; Wt 99.8 kg
--- NOTE | ~2020-03-06 | OP ---
PATIENT NAME: KEV LAMBERT MEDICAL RECORD: [id number] :59 LOCATION:D.OPS ADMISSION DATE: SURGEON: JUAQUIN ZAMBRANO MD DATE OF OPERATION: 03/06/2020 PREOPERATIVE DIAGNOSES: 1. Colon cancer. 2. Hypertension. 3. Hypercholesterolemia. 4. Tobacco dependence syndrome. POSTOPERATIVE DIAGNOSES: 1. Colon cancer. 2. Hypertension. 3. Hypercholesterolemia. 4. Tobacco dependence syndrome. PROCEDURE: 1. Left subclavian vein port placement. 2. Fluoroscopic interpretation. SURGEON: Juaquin Zambrano MD REPORT OF PROCEDURE: The patient's left chest was prepped and draped in sterile fashion. A needle was used to cannulate the left subclavian vein and a guidewire was advanced with ease. Fluoro was used to note that the wire was in good position in the venous system. A skin incision was made on the left superior lateral chest and a subcutaneous pouch was made over the pectoral fascia. A catheter was tunneled between this pouch and the wire exit site. The port was then sutured to the pectoral fascia with interrupted 2-0 Prolenes times 2. The catheter was cut with a beveled tip at 23 cm. The dilator trocar device was placed over the wire and the wire and dilator were removed. The catheter tip was advanced through the trocar and the trocar was then removed. Fluoro was used to note that that the catheter tip was resting in good position in the superior vena cava, right atrial junction. The catheter aspirated nonpulsatile dark blood and flushed easily with heparinized saline. The subcutaneous tissues were reapproximated with interrupted 3-0 Vicryl and the skin was closed with running subcutaneous 5-0 Monocryl. COMPLICATIONS: None. CONDITION: Stable. ANESTHESIA: General endotracheal and local. BLOOD LOSS: Minimal. TRANSINT:[id number] Voice Confirmation ID: [id number] DOCUMENT ID: [id number] OPERATIVE REPORT [id number] KEV LAMBERT CHRISTIAN MD CC: MARIANA VAUGHAN MD and MONIKA PETTY MD [id number] DICTATION DATE: 03/06/2035 SPECIAL EDUCATION PARA PROFESSIONAL: 03/06/20 1118 [facility] 03/06/20 [id number] [place] [address]
[2020-03-06 05:50] LABS: HEMATOCRIT 41.6 % (36.0-48.0); HEMOGLOBIN 13.5 g/dL (12-16); LYMPHOCYTES 27.1 % (15-50); MCH 29.2 pg (26.0-34.0); MCHC 32.5 g/dL (31.0-37.0); MCV 89.8 fL (80.0-100.0); MEAN PLATELET VOLUME 9.9 fL (7.4-10.4); NEUTROPHILS 64.2 % (40-80); RBC 4.63 10x6/uL (4.00-5.40); RDW 15.3 % (11.5-14.5); WBC 9.9 10x3/uL (4.8-10.8)
[2020-03-06 05:51] LABS: APTT 32.5 SECONDS (22.8-39.4); PROTIME 13.1 SECONDS (11.6-15.0)
[2020-03-06 05:52] LABS: PLATELET COUNT 338 10x3/uL (130-400)
[2020-03-06 06:02] LABS: ANION GAP 9.9 mmol/L (8-16); CALCIUM 8.1 mg/dL (8.5-10.1); CARBON DIOXIDE 29.7 mmol/L (21.0-32.0); CREATININE - SERUM 1.3 mg/dL (0.6-1.3); POTASSIUM - SERUM 4.6 mmol/L (3.5-5.1)
[2020-03-06 06:30] VITALS: BP 149/71; Ht 172.7 cm; Wt 99.8 kg
--- NOTE | 2020-03-06 09:55 | NUR ---
0945-AMBULATED TO RESTROOM AND VOIDED WITHOUT COMPLICATIONS. REMOVED IV WITH CATH INTACT,DISPOSED INTO SHARPS,COVERED WITH GUAZE,SECURED WITH MEDIPORE TAPE. DRESSING TO LEFT UPPER CHEST CDI. REVIEWED POST OP INSTRUCTIONS. HAS NEEDLE IN PACKAGE TO TAKE WITH HER TO HER ONCOLOGIST APPOINTMENT.
--- NOTE | 2020-03-06 09:58 | NUR ---
0955-ESCORTED OUT VIA W/C BY STAFF WITH FRIEND AWAITING TO DRIVE HOME
== END 2020-03-06 09:55 | disposition home or self-care (01) ==
LOC: D.OPS 05:08 → D.PAN 07:30 → D.OPS 07:30
PROVIDERS: Anesthesiology; ATTEND Surgery
DX: C18.9 Malignant neoplasm of colon, unspecified (principal); I10 Essential (primary) hypertension; E78.00 Pure hypercholesterolemia, unspecified; F17.200 Nicotine dependence, unspecified, uncomplicated

== ENCOUNTER → 2020-04-21 20:16 | Outpatient (CLI) | payer MEDICARE ==
[2020-03-06 06:30] VITALS: BMI 33.5
== END | disposition home or self-care (01) ==
LOC: D.LABREF 20:16
PROVIDERS: ATTEND Surgery
DX: R30.0 Dysuria (principal)

== ENCOUNTER 2020-06-08 18:30 | Emergency (ER) | payer MEDICARE ==
[~2020-06-08] VITALS: Ht 172.7 cm; Wt 90.9 kg
[2020-06-08 18:34] VITALS: Ht 172.7 cm; Wt 90.9 kg
[2020-06-08 19:09] LABS: HEMATOCRIT 40.8 % (36.0-48.0); HEMOGLOBIN 13.9 g/dL (12-16); LYMPHOCYTES 32.9 % (15-50); MCHC 34.1 g/dL (31.0-37.0); MCV 93.8 fL (80.0-100.0); MEAN PLATELET VOLUME 9.4 fL (7.4-10.4); NEUTROPHILS 54.9 % (40-80); PLATELET COUNT 181 10x3/uL (130-400); RBC 4.35 10x6/uL (4.00-5.40); RDW 19.2 % (11.5-14.5); WBC 9.1 10x3/uL (4.8-10.8)
[2020-06-08 19:12] LABS: CALC OSMOLALITY 272 mosm/kg (275-300); CALCIUM 8.3 mg/dL (8.5-10.1); CARBON DIOXIDE 29.8 mmol/L (21.0-32.0); CHLORIDE - SERUM 99 mmol/L (98-107); CREATININE - SERUM 1.3 mg/dL (0.6-1.3); GLUCOSE 120 mg/dL (74-106); POTASSIUM - SERUM 3.4 mmol/L (3.5-5.1); SODIUM 133 mmol/L (136-145); UREA NITROGEN 30 mg/dL (7-18); eGFR NON AFRICAN AMERICAN 44 mL/min (90-120)
[2020-06-08 19:20] LABS: ALBUMIN 3.2 g/dL (3.4-5.0); ALKALINE PHOSPHATASE 87 U/L (30-120); ALT (SGPT) 39 U/L (10-68); AMYLASE - SERUM 84 U/L (25-115); BILIRUBIN - TOTAL 0.27 mg/dL (0.2-1.3); LIPASE 298 U/L (73-393); PROTEIN - SERUM 7.5 g/dL (6.4-8.2)
[2020-06-08 19:24] LABS: TROPONIN-I < 0.017 ng/mL (0.000-0.060)
[2020-06-08 20:19] LABS: BILIRUBIN NEGATIVE (NEGATIVE); KETONE NEGATIVE (NEGATIVE); NITRITE NEGATIVE (NEGATIVE); UROBILINOGEN NORMAL mg/dL (< 2)
[2020-06-08 20:20] LABS: WHITE CELLS - URINE NSEEN HPF (0-4)
[2020-06-08] MEDS ORDERED: ZOFRAN ODT4 MG/UDTAB PO (20:40)
[2020-06-08] MEDS ORDERED: CHRONULAC30 ML PO (20:40)
[2020-06-08 21:33] VITALS: BP 127/54
== END 2020-06-08 21:33 | disposition home or self-care (01) ==
LOC: D.ER 18:30
PROVIDERS: Family Medicine
DX: R10.9 Unspecified abdominal pain (principal); K59.00 Constipation, unspecified; R73.9 Hyperglycemia, unspecified; E83.51 Hypocalcemia; E87.6 Hypokalemia; E87.1 Hypo-osmolality and hyponatremia; E07.9 Disorder of thyroid, unspecified; I10 Essential (primary) hypertension; K21.9 Gastro-esophageal reflux disease without esophagitis; Z72.0 Tobacco use; Z85.038 Personal history of other malignant neoplasm of large intestine; Z85.528 Personal history of other malignant neoplasm of kidney

== ENCOUNTER → 2020-07-02 20:07 | Outpatient (CLI) | payer MEDICARE ==
[2020-06-08 18:34] VITALS: BMI 30.4
[~2020-07-02 20:07] MED LIST changes: +CHRONULAC30 ML PO; +ZOFRAN ODT4 MG/UDTAB PO
== END | disposition home or self-care (01) ==
LOC: D.LABREF 20:07
PROVIDERS: ATTEND Urology
DX: N39.0 Urinary tract infection, site not specified (principal)

== ENCOUNTER 2020-12-22 14:16 | Inpatient (IN) | payer MEDICARE ==
[~2020-12-22] VITALS: Ht 172.7 cm; Wt 93.2 kg
[2020-12-22 14:36] LABS: BILIRUBIN NEGATIVE (NEGATIVE); KETONE NEGATIVE (NEGATIVE); NITRITE POSITIVE (NEGATIVE); UROBILINOGEN NORMAL mg/dL (< 2)
[2020-12-22 14:38] LABS: BACTERIA MODERATE HPF (NONE SEEN); WHITE CELLS - URINE >50 HPF (0-4)
[2020-12-22 14:54] LABS: BASOPHILS 0.3 % (0-2); EOSINOPHILS 1.8 % (0-7); HEMATOCRIT 39.3 % (36.0-48.0); HEMOGLOBIN 12.8 g/dL (12-16); IMMATURE GRANULOCYTES 0.4 % (0-5); LYMPHOCYTE ABS# 2.05 10x3/uL (1.18-3.74); MCH 29.7 pg (26.0-34.0); MCHC 32.6 g/dL (31.0-37.0); MCV 91.2 fL (80.0-100.0); MEAN PLATELET VOLUME 9.7 fL (7.4-10.4); MONOCYTES 9.3 % (2-11); NEUTROPHIL ABS# 8.59 10x3/uL (1.56-6.13); NEUTROPHILS 71.2 % (40-80); PLATELET COUNT 296 10x3/uL (130-400); RBC 4.31 10x6/uL (4.00-5.40); WBC 12.1 10x3/uL (4.8-10.8)
[2020-12-22 15:00] VITALS: BP 130/62
[2020-12-22 15:01] LABS: ANION GAP 12.6 mmol/L (8-16); CALCIUM 8.3 mg/dL (8.5-10.1); CARBON DIOXIDE 24.2 mmol/L (21.0-32.0); CREATININE - SERUM 1.7 mg/dL (0.6-1.3); POTASSIUM - SERUM 3.8 mmol/L (3.5-5.1)
[2020-12-22 16:00] VITALS: BP 146/78
[2020-12-22 17:00] VITALS: BP 155/68
--- NOTE | 2020-12-22 19:05 | NUR ---
REPORT TO NANETTE GILL
[2020-12-22] MEDS ORDERED: DURAGESIC1 EAC4 TRANSDERM (22:53)
[2020-12-22] MEDS ORDERED: AMBIEN5 MG PO (22:55)
[2020-12-22] MEDS ORDERED: ELAVIL25 MG PO (22:56)
[2020-12-22] MEDS ORDERED: AMOXICILLIN500 M1 PO (22:59)
[2020-12-23] VITALS (7 sets, daily range): BP systolic 101–129; BP diastolic 47–59; Ht 172.7 cm; Wt 93.2 kg
--- NOTE | 2020-12-23 00:07 | NUR ---
PER ABIOLA MARTIN, OKAY TO USE PORT TO LEFT CHEST WALL. ACCESSED WITH 20G 1" POWER PORT SET. SMALL BLOOD RETURN AT FIRST DRAW BACK, NO FURTHER BLOOD RETURN NOTED. FLUSHES EASILY. HEPARIN NOTED IN LINE. NO DISCOMFORT WITH FLUSH PER PATIENT.
[2020-12-23 07:09] LABS: ANION GAP 12.3 mmol/L (8-16); CALCIUM 7.1 mg/dL (8.5-10.1); CREATININE - SERUM 1.5 mg/dL (0.6-1.3); MAGNESIUM - SERUM 2.1 mg/dL (1.8-2.4); PHOSPHOROUS 3.8 mg/dL (2.5-4.9); POTASSIUM - SERUM 4.3 mmol/L (3.5-5.1)
[2020-12-23 07:42] LABS: BASOPHILS 0.2 % (0-2); HEMATOCRIT 31.8 % (36.0-48.0); IMMATURE GRANULOCYTES 0.4 % (0-5); LYMPHOCYTE ABS# 1.84 10x3/uL (1.18-3.74); LYMPHOCYTES 18.1 % (15-50); MCH 29.4 pg (26.0-34.0); MCHC 32.1 g/dL (31.0-37.0); MCV 91.6 fL (80.0-100.0); MEAN PLATELET VOLUME 9.1 fL (7.4-10.4); NEUTROPHIL ABS# 7.04 10x3/uL (1.56-6.13); NEUTROPHILS 69.3 % (40-80); PLATELET COUNT 258 10x3/uL (130-400); RBC 3.47 10x6/uL (4.00-5.40); RDW 15.2 % (11.5-14.5); WBC 10.2 10x3/uL (4.8-10.8)
[2020-12-23 07:55] LABS: HEMOGLOBIN 10.2 g/dL (12-16)
[2020-12-23 14:22] LABS: BASOPHILS 0.3 % (0-2); EOSINOPHILS 2.9 % (0-7); HEMATOCRIT 31.6 % (36.0-48.0); HEMOGLOBIN 10.2 g/dL (12-16); IMMATURE GRANULOCYTES 0.3 % (0-5); LYMPHOCYTE ABS# 1.95 10x3/uL (1.18-3.74); MCH 29.6 pg (26.0-34.0); MCHC 32.3 g/dL (31.0-37.0); MCV 91.6 fL (80.0-100.0); MEAN PLATELET VOLUME 9.3 fL (7.4-10.4); MONOCYTES 9.5 % (2-11); PLATELET COUNT 257 10x3/uL (130-400); RBC 3.45 10x6/uL (4.00-5.40); RDW 15.1 % (11.5-14.5); WBC 10.3 10x3/uL (4.8-10.8)
--- NOTE | 2020-12-23 14:34 | MORECARE ---
CASE MANAGEMENT DISCHARGE SUMMARY PATIENT: KEV LAMBERT UNIT: [id number] ADM DATE: 12/22/20 AGE: 65 : 59 SEX: F ROOM/BED: D.2203 AUTHOR: MARCO CORRAL PHYSICIAN: REFERRING PHYSICIAN: ELLIOTT MCGOVERN MD DATE OF SERVICE: 12/23/20 Case Management Discharge Planning Summary CT Patient Name: KEV LAMBERT Attending MD : ELLOITT ESTRADA Medical Record: [id number] Encounter : [id number] Facility : [address] [place] [address] Admission Date : 119:27 Center Discharge Date : [address] [place] [address] Date of : DC Plan ID : [id number] Age/Sex/Martia : 65/ F/S Printed on : 12/23/20 14:32 CT DCP Review Details Anticipated D/C: Expected LOS : Case Status : INITIATED - Initial Reviewe: [id number] - Shanika Akins Initial Review: 12/22/2020 Planned Disposi: 09 - Admitted as an Inpatient to this Hospital Final Discharge: - Final Reviewer : : Final Review : Comments CT Entered Date Type Reviewer 12/23/20 14:08 CT Discharge Planning Shanika Akins Comment PER GAEL TO START THE PROCESS TO TRANSFER PATIENT TO HIGHER LEVEL OF CARE I SPOKE WITH THE PATIENT AND SHE HAS BEEN SEEING DR MORTENSEN AND DR QUEVEDO ( November) I SPOKE WITH LES WITH THE [facility] BED BOARD AND HAVE STARTED THE PROCESS. LES STATED THAT THEY ARE ON BED MAX AT THIS TIME & THERE ARE 16 IN ER WAITING ON A BED, SO IT WILL TAKE A DAY OR 2 TO GET A BED FOR HER. CM WILL CONTINUE TO FOLLOW AND ASSIST NEEDED DCP [facility] KEV LAMBERT MR#: [id number] /Age/Sex/Cqvryq22-Jjt-14 /65/F /S Attending Physician Name: ELLIOTT MCGOVERN [id number] Patient Account:[id number] [facility] Page -1 of 1 All edits/amendments must be made on the electronic document DICTATION DATE: 12/23/201431 WASHERY ENGINEER: ZEFERINO 12/23/20 1432 RPT#: [id number] DC DATE: STATUS: ADM IN [facility] [address] [place] [address] END OF REPORT
--- NOTE | 2020-12-23 14:55 | NUR ---
PATIENT PORT ACCESSED CHANGED PER PATIENT REQUEST. STATED SHE DIDNT THINK IT WAS IN RIGHT BECAUSE IT DIDNT DRAW BLOOD BACK. ACCESSED WITH 20G 1INCH POWER LOC. STILL DOESNT DRAW BLOOD BACK. FLUSHES WITH NO PROBLEMS. CATHETER INSERTED AT THIS TIME PER DR. BAEZ ORDER. PATIENT URINE PINK WITH SMALL CLOTS IN IT. COMPRESS MACHINE OPERATOR STARTED ORDERED. GAVE PATIENT 1 MG OF DILAUDID THROUGH COMPRESS MACHINE OPERATOR. ORDERED 1 MG STAT BY GAEL MIMS. WILL CONTINUE TO MONITOR. CALL LIGHT WITHIN REACH.
[2020-12-24 04:00] VITALS: BP 95/42
[2020-12-24 06:47] LABS: BASOPHILS 0.2 % (0-2); EOSINOPHILS 3.9 % (0-7); HEMATOCRIT 29.5 % (36.0-48.0); HEMOGLOBIN 9.3 g/dL (12-16); IMMATURE GRANULOCYTES 0.2 % (0-5); MCHC 31.5 g/dL (31.0-37.0); MCV 91.9 fL (80.0-100.0); MEAN PLATELET VOLUME 9.9 fL (7.4-10.4); MONOCYTES 9.4 % (2-11); NEUTROPHIL ABS# 5.32 10x3/uL (1.56-6.13); NEUTROPHILS 66.3 % (40-80); PLATELET COUNT 275 10x3/uL (130-400); RBC 3.21 10x6/uL (4.00-5.40); RDW 14.9 % (11.5-14.5); RETIC 2.04 % (0.45-2.28)
--- NOTE | 2020-12-24 07:08 | NUR ---
PATIENT REPORTS CONTINUED PAIN IN BLADDER. URINE IN GALARZA CATHETER DARK RED BLOOD.
[2020-12-24 08:00] LABS: % SATURATION 11 % (15-55); IRON 23 ug/dl (35-150); TOTAL IRON BIND CAPACITY 209 ug/dl (260-445); UNSAT IRON BIND CAPACITY 186 ug/dl (150-375)
[2020-12-24 08:03] LABS: ANION GAP 12.8 mmol/L (8-16); CARBON DIOXIDE 22.7 mmol/L (21.0-32.0); CREATININE - SERUM 1.5 mg/dL (0.6-1.3); MAGNESIUM - SERUM 2.2 mg/dL (1.8-2.4); PHOSPHOROUS 3.7 mg/dL (2.5-4.9); POTASSIUM - SERUM 4.5 mmol/L (3.5-5.1)
[2020-12-24 08:40] VITALS: BP 107/50
[2020-12-24 13:07] VITALS: BP 105/43
--- NOTE | 2020-12-24 13:21 | MORECARE ---
CASE MANAGEMENT DISCHARGE SUMMARY PATIENT: KEV LAMBERT UNIT: [id number] ADM DATE: 12/22/20 AGE: 65 : 59 SEX: F ROOM/BED: D.2203 AUTHOR: MARCO CORRAL PHYSICIAN: REFERRING PHYSICIAN: ELLIOTT MCGOVERN MD DATE OF SERVICE: 12/24/20 Case Management Discharge Planning Summary CT Patient Name: KEV LAMBERT Attending MD : ELLIOTT ESTRADA Medical Record: [id number] Encounter : [id number] Facility : [address] [place] [address] Admission Date : 119:27 Center Discharge Date : [address] [place] [address] Date of : DC Plan ID : [id number] Age/Sex/Martia : 65/ F/S Printed on : 12/24/20 13:19 CT DCP Review Details Anticipated D/C: Expected LOS : Case Status : INITIATED - Initial Reviewe: [id number] - Shanika Akins Initial Review: 12/22/2020 Planned Disposi: 09 - Admitted as an Inpatient to this Hospital Final Discharge: - Final Reviewer : : Final Review : Comments CT Entered Date Type Reviewer 12/23/20 14:08 CT Discharge Planning Shanika Akins Comment PER GAEL TO START THE PROCESS TO TRANSFER PATIENT TO HIGHER LEVEL OF CARE I SPOKE WITH THE PATIENT AND SHE HAS BEEN SEEING DR MORTENSEN AND DR QUEVEDO ( November) I SPOKE WITH LES WITH THE [facility] BED BOARD AND HAVE STARTED THE PROCESS. LES STATED THAT THEY ARE ON BED MAX AT THIS TIME & THERE ARE 16 IN ER WAITING ON A BED, SO IT WILL TAKE A DAY OR 2 TO GET A BED FOR HER. CM WILL CONTINUE TO FOLLOW AND ASSIST NEEDED DCP [facility] KEV LAMBERT MR#: [id number] /Age/Sex/Mmgbve01-Zht-50 /65/F /S Attending Physician Name: ELLIOTT MCGOVERN [id number] Patient Account:[id number] [facility] Page -1 of 1 All edits/amendments must be made on the electronic document DICTATION DATE: 12/24/20 131 OVEN EQUIPMENT REPAIRER: ZEFERINO 12/24/20 131 RPT#: [id number] DC DATE: STATUS: ADM IN [facility] [address] [place] [address] END OF REPORT
[2020-12-24 16:30] VITALS: BP 126/66
--- NOTE | 2020-12-25 00:13 | NUR ---
PT IN BED WITH IV INTACT. PT COMPLAINTS OF ABDOMINAL PAIN AND CONSTIPATION. MARIO ORDER DUCOLAX& SENOKOT TO HELP SOFT STOOL. WILL CONT TO MONITOR PT CALL LIGHT WITHIN REACH.
[2020-12-25 04:00] VITALS: BP 133/57
--- NOTE | 2020-12-25 06:33 | NUR ---
I have reviewed this patient and I concur with the Shift Assessment completed by the Licensed Practical Nurse today this shift.
[2020-12-25 06:47] LABS: BASOPHILS 0.2 % (0-2); HEMATOCRIT 30.3 % (36.0-48.0); HEMOGLOBIN 9.5 g/dL (12-16); IMMATURE GRANULOCYTES 0.6 % (0-5); LYMPHOCYTE ABS# 1.43 10x3/uL (1.18-3.74); LYMPHOCYTES 16.2 % (15-50); MCH 29.1 pg (26.0-34.0); MCHC 31.4 g/dL (31.0-37.0); MCV 92.9 fL (80.0-100.0); MEAN PLATELET VOLUME 10.3 fL (7.4-10.4); MONOCYTES 8.5 % (2-11); NEUTROPHIL ABS# 6.23 10x3/uL (1.56-6.13); NEUTROPHILS 70.5 % (40-80); PLATELET COUNT 293 10x3/uL (130-400); RBC 3.26 10x6/uL (4.00-5.40); RDW 15.2 % (11.5-14.5); WBC 8.8 10x3/uL (4.8-10.8)
[2020-12-25 07:29] LABS: ANION GAP 15.5 mmol/L (8-16); CALCIUM 7.2 mg/dL (8.5-10.1); CARBON DIOXIDE 23.1 mmol/L (21.0-32.0); CREATININE - SERUM 1.4 mg/dL (0.6-1.3); MAGNESIUM - SERUM 2.2 mg/dL (1.8-2.4); PHOSPHOROUS 3.4 mg/dL (2.5-4.9); POTASSIUM - SERUM 4.6 mmol/L (3.5-5.1)
[2020-12-25 08:22] VITALS: BP 114/66
[2020-12-25 12:43] VITALS: BP 115/47
[2020-12-25 16:54] VITALS: BP 118/52
[2020-12-25 20:00] VITALS: BP 110/47
[2020-12-26] VITALS: BP 129/53
--- NOTE | 2020-12-26 01:41 | NUR ---
PT IN BED REQUEST TO GET NEW GALARZA IN PLACE DUE TO SPASM. PT WAS INFORMED THAT NEPRHOLOGY MUST BE CONSULT DUE TO ILLNESS. WILL CONT TO MONITOR
--- NOTE | 2020-12-26 02:15 | NUR ---
RECEIVED REPORT FROM RN. PT LAYING IN BED SLEEPING, NO DISTRESS NOTED. INFUSAPORT TO LEFT SUBCLAV, PATENT AND INFUSING. 2L NC IN PLACE. GALARZA IN PLACE DRAINING TO GRAVITY, STATLOCK IN PLACE. BED LOW, CL IN REACH.
--- NOTE | 2020-12-26 02:54 | NUR ---
I have reviewed this patient and I concur with the Shift Assessment completed by the Licensed Practical Nurse today this shift.
[2020-12-26 04:00] VITALS: BP 122/60
[2020-12-26 05:41] LABS: BASOPHILS 0.2 % (0-2); EOSINOPHILS 4.6 % (0-7); HEMATOCRIT 29.9 % (36.0-48.0); HEMOGLOBIN 9.4 g/dL (12-16); IMMATURE GRANULOCYTES 0.5 % (0-5); LYMPHOCYTE ABS# 1.44 10x3/uL (1.18-3.74); LYMPHOCYTES 17.2 % (15-50); MCH 28.8 pg (26.0-34.0); MCHC 31.4 g/dL (31.0-37.0); MCV 91.7 fL (80.0-100.0); MEAN PLATELET VOLUME 9.9 fL (7.4-10.4); MONOCYTES 9.7 % (2-11); NEUTROPHIL ABS# 5.66 10x3/uL (1.56-6.13); NEUTROPHILS 67.8 % (40-80); PLATELET COUNT 294 10x3/uL (130-400); RBC 3.26 10x6/uL (4.00-5.40); RDW 15.2 % (11.5-14.5); WBC 8.4 10x3/uL (4.8-10.8)
[2020-12-26 05:54] LABS: ANION GAP 13.6 mmol/L (8-16); CALCIUM 7.6 mg/dL (8.5-10.1); CARBON DIOXIDE 22.6 mmol/L (21.0-32.0); CREATININE - SERUM 1.4 mg/dL (0.6-1.3); MAGNESIUM - SERUM 2.2 mg/dL (1.8-2.4); PHOSPHOROUS 3.4 mg/dL (2.5-4.9); POTASSIUM - SERUM 4.2 mmol/L (3.5-5.1)
[2020-12-26 08:28] VITALS: BP 128/64
[2020-12-26] MEDS ORDERED: LEVOFLOXAC500 MG/100 IV (12:16)
[2020-12-26] MEDS ORDERED: IPRAT-ALBUT 0.5-3 ML UPD (12:16)
[2020-12-26] MEDS ORDERED: PERFOROMIS20 MCG/21 UPD (12:16)
[2020-12-26] MEDS ORDERED: ROCEPHIN 1 GM/D51 G1 IV (12:16)
[2020-12-26] MEDS ORDERED: NICODERM CQ1 EAC3 TRANSDERM (12:16)
[2020-12-26] MEDS ORDERED: FLORAJEN3 CAPS460 MG PO (12:17)
[2020-12-26] MEDS ORDERED: COLACE100 MG PO (12:17)
[2020-12-26] MEDS ORDERED: Ditropan XL PO (12:18)
[2020-12-26 13:06] VITALS: BP 122/52
--- NOTE | 2020-12-26 13:25 | MORECARE ---
CASE MANAGEMENT DISCHARGE SUMMARY PATIENT: KEV LAMBERT UNIT: [id number] ADM DATE: 12/22/20 AGE: 65 : 59 SEX: F ROOM/BED: D.2203 AUTHOR: MARCO CORRAL PHYSICIAN: REFERRING PHYSICIAN: ELLIOTT MCGOVERN MD DATE OF SERVICE: 12/26/20 Case Management Discharge Planning Summary CT Patient Name: KEV LAMBERT Attending MD : ELLIOTT ESTRADA Medical Record: [id number] Encounter : [id number] Facility : [address] [place] [address] Admission Date : 119:27 Center Discharge Date : [address] [place] [address] Date of : DC Plan ID : [id number] Age/Sex/Martia : 65/ F/S Printed on : 12/26/20 13:24 CT DCP Review Details Anticipated D/C: Expected LOS : Case Status : INITIATED - Initial Reviewe: [id number] - Shanika Akins Initial Review: 12/22/2020 Planned Disposi: 09 - Admitted as an Inpatient to this Hospital Final Discharge: - Final Reviewer : : Final Review : Comments CT Entered Date Type Reviewer 12/26/20 13:05 CT Discharge Planning Shanika Akins Comment PATIENT HAS BEEN ACCEPTED TO [facility] IN [place] BY DR SAE CAPELLAN DID THE DOC TO DOC AND SHE WILL TRANSPORT [facility] THE PATIENTS NURSE HAS SPOKE WITH THE BED CONTROL AND WILL CALL REPORT CM TO ASSIST NEEDED 12/23/20 14:08 CT Discharge Planning Shanika Akins Comment PER GAEL TO START THE PROCESS TO TRANSFER PATIENT TO HIGHER LEVEL OF CARE I SPOKE WITH THE PATIENT AND SHE HAS BEEN SEEING DR ECHEVARRIA'Yaakov AND DR QUEVEDO ( November) I SPOKE WITH LES WITH THE [facility] BED BOARD AND HAVE STARTED THE PROCESS. LES STATED THAT THEY ARE ON BED MAX AT THIS TIME & THERE ARE 16 IN ER WAITING ON A BED, SO IT WILL TAKE A DAY OR 2 TO GET A BED FOR HER. CM WILL CONTINUE TO FOLLOW AND ASSIST NEEDED DCP [facility] KEV LAMBERT MR#: [id number] /Age/Sex/Pnhknl55-Cgh-06 /65/F /S Attending Physician Name: ELLIOTT [id number] Patient Account:[id number] [facility] Page -1 of 1 All edits/amendments must be made on the electronic document DICTATION DATE: 12/26/201323 THERAPEUTIC RIDING INSTRUCTOR: ZEFERINO 12/26/201323 RPT#: [id number] DC DATE: STATUS: ADM IN [facility] [address] [facility] [place] [address] END OF REPORT
--- NOTE | 2020-12-26 14:30 | NUR ---
PATIENT REFUSES SCD'S WITH GALARZA CATH PATENT WITH BLOOD TINGED URINE. DILAUDID SKEIN STRAIGHTENER EFFECTIVE FOR PAIN 05/05 MANAGEMENT OF ABDOMINAL PAIN 12/03. LEFT INFUSAPORT S/L WITH [facility] HERE FOR TRANSPORT. MEDICATIONS GIVEN TO PATIENT UPON DISCHARGE AND VERBALIZED UNDERSTANDING OF DISCHARGE INSTRUCTIONS. DANYELLE FITZPATRICK AT [facility] CALLED REPORT FOR TRANSPORT TO [place] [address] AND INSTRUCTED ON METHADONE AND OTHER MEDICTIONS GIVEN TO PATIENT. STABLE AT TIME OF DISCHARGE [facility]
--- NOTE | 2020-12-26 16:35 | MORECARE ---
CASE MANAGEMENT DISCHARGE SUMMARY PATIENT: KEV LAMBERT UNIT: [id number] ADM DATE: 12/22/20 AGE: 65 : 59 SEX: F ROOM/BED: D.2203 AUTHOR: MARCO CORRAL PHYSICIAN: REFERRING PHYSICIAN: ELLIOTT MCGVOERN MD DATE OF SERVICE: 12/26/20 Case Management Discharge Planning Summary CT Patient Name: KEV LAMBERT Attending MD : ELLIOTT ESTRADA Medical Record: [id number] Encounter : [id number] Facility : [address] [place] [address] Admission Date : 119:27 Center Discharge Date : 12/26/2020 [facility] [place] [address] Date of : DC Plan ID : [id number] Age/Sex/Martia : 65/ F/S Printed on : 12/26/20 16:34 CT DCP Review Details Anticipated D/C: Expected LOS : Case Status : INITIATED - Initial Reviewe: [id number] - Shanika Akins Initial Review: 12/22/2020 Planned Disposi: 09 - Admitted as an Inpatient to this Hospital Final Discharge: - Final Reviewer : : Final Review : Comments CT Entered Date Type Reviewer 12/26/20 13:05 CT Discharge Planning Shanika Akins Comment PATIENT HAS BEEN ACCEPTED TO [facility] IN [place] BY DR SAE CAPELLAN DID THE DOC TO [facility] AND SHE WILL TRANSPORT [facility] THE PATIENTS NURSE HAS SPOKE WITH THE BED CONTROL AND WILL CALL REPORT CM TO ASSIST NEEDED 12/23/20 14:08 CT Discharge Planning Shanika Akins Comment PER GAEL TO START THE PROCESS TO TRANSFER PATIENT TO HIGHER LEVEL OF CARE I SPOKE WITH THE PATIENT AND SHE HAS BEEN SEEING DR ECHEVARRIA'Yaakov AND DR QUEVEDO ( November) I SPOKE WITH LES WITH THE [facility] BED BOARD AND HAVE STARTED THE PROCESS. LES STATED THAT THEY ARE ON BED MAX AT THIS TIME & THERE ARE 16 IN ER WAITING ON A BED, SO IT WILL TAKE A DAY OR 2 TO GET A BED FOR HER. CM WILL CONTINUE TO FOLLOW AND ASSIST NEEDED DCP [facility] KEV LAMBERT MR#: [id number] /Age/Sex/Bzjqvg19-Zsg-28 /65/F /S Attending Physician Name: ELLIOTT MCGOVERN [id number] Patient Account:[id number] [facility] Page -1 of 1 All edits/amendments must be made on the electronic document DICTATION DATE: 12/26/201633 TOY CONSULTANT: ZEFERINO 12/26/201633 RPT#: [id number] DC DATE:12/26/20 STATUS: DIS IN [facility] [address] [place] [address] END OF REPORT
--- NOTE | 2020-12-27 17:54 | MORECARE ---
CASE MANAGEMENT DISCHARGE SUMMARY PATIENT: KEV LAMBERT UNIT: [id number] ADM DATE: 12/22/20 AGE: 65 : 59 SEX: F ROOM/BED: D.2203 AUTHOR: MARCO CORRAL PHYSICIAN: REFERRING PHYSICIAN: ELLIOTT MCGOVERN MD DATE OF SERVICE: 12/27/20 Case Management Discharge Planning Summary CT Patient Name: KEV LAMBERT Attending MD : ELLIOTT ESTRADA Medical Record: [id number] Encounter : [id number] Facility : [address] [place] [address] Admission Date : 119:27 Center Discharge Date : 12/26/2020 [facility] [place] [address] Date of : DC Plan ID : [id number] Age/Sex/Martia : 65/ F/S Printed on : 12/27/20 17:53 CT DCP Review Details Anticipated D/C: Expected LOS : Case Status : INITIATED - Initial Reviewe: [id number] - Shanika Akins Initial Review: 12/22/2020 Planned Disposi: 09 - Admitted as an Inpatient to this Hospital Final Discharge: - Final Reviewer : : Final Review : Comments CT Entered Date Type Reviewer 12/26/20 13:05 CT Discharge Planning Shanika Akins Comment PATIENT HAS BEEN ACCEPTED TO [facility] IN [place] BY DR SAE CAPELLAN DID THE DOC TO [facility] AND SHE WILL TRANSPORT [facility] THE PATIENTS NURSE HAS SPOKE WITH THE BED CONTROL AND WILL CALL REPORT CM TO ASSIST NEEDED 12/23/20 14:08 CT Discharge Planning Shanika Akins Comment PER GAEL TO START THE PROCESS TO TRANSFER PATIENT TO HIGHER LEVEL OF CARE I SPOKE WITH THE PATIENT AND SHE HAS BEEN SEEING DR ECHEVARRIA'Yaakov AND DR QUEVEDO ( November) I SPOKE WITH LES WITH THE [facility] BED BOARD AND HAVE STARTED THE PROCESS. LES STATED THAT THEY ARE ON BED MAX AT THIS TIME & THERE ARE 16 IN ER WAITING ON A BED, SO IT WILL TAKE A DAY OR 2 TO GET A BED FOR HER. CM WILL CONTINUE TO FOLLOW AND ASSIST NEEDED DCP [facility] KEV LAMBERT MR#: [id number] /Age/Sex/Vyxqvi76-Afq-69 /65/F /S Attending Physician Name: ELLIOTT MCGOVERN [id number] Patient Account:[id number] [facility] Page -1 of 1 All edits/amendments must be made on the electronic document DICTATION DATE: 12/27/201752 CONICAL MIXER: ZEFERINO 12/27/201752 RPT#: [id number] DC DATE:12/26/20 STATUS: DIS IN [facility] [address] [place] [address] END OF REPORT
--- NOTE | 2020-12-29 11:20 | MORECARE ---
CASE MANAGEMENT DISCHARGE SUMMARY PATIENT: KEV LAMBERT UNIT: [id number] ADM DATE: 12/22/20 AGE: 65 : 59 SEX: F ROOM/BED: D.2203 AUTHOR: MARCO CORRAL PHYSICIAN: REFERRING PHYSICIAN: ELLIOTT MCGOVERN MD DATE OF SERVICE: 12/29/20 Case Management Discharge Planning Summary CT Patient Name: KEV LAMBERT Attending MD : ELLIOTT ESTRADA Medical Record: [id number] Encounter : [id number] Facility : [address] [place] [address] Admission Date : 119:27 Center Discharge Date : 12/26/2020 [facility] [place] [address] Date of : DC Plan ID : [id number] Age/Sex/Martia : 65/ F/S Printed on : 12/29/20 11:19 CT DCP Review Details Anticipated D/C: Expected LOS : Case Status : INITIATED - Initial Reviewe: [id number] - Shanika Akins Initial Review: 12/22/2020 Planned Disposi: 09 - Admitted as an Inpatient to this Hospital Final Discharge: - Final Reviewer : : Final Review : Comments CT Entered Date Type Reviewer 12/26/20 13:05 CT Discharge Planning Shanika Akins Comment PATIENT HAS BEEN ACCEPTED TO [facility] IN [place] BY DR SAE CAPELLAN DID THE DOC TO [facility] AND SHE WILL TRANSPORT [facility] THE PATIENTS NURSE HAS SPOKE WITH THE BED CONTROL AND WILL CALL REPORT CM TO ASSIST NEEDED 12/23/20 14:08 CT Discharge Planning Shanika Akins Comment PER GAEL TO START THE PROCESS TO TRANSFER PATIENT TO HIGHER LEVEL OF CARE I SPOKE WITH THE PATIENT AND SHE HAS BEEN SEEING DR ECHEVARRIA'Yaakov AND DR QUEVEDO ( November) I SPOKE WITH LES WITH THE [facility] BED BOARD AND HAVE STARTED THE PROCESS. LES STATED THAT THEY ARE ON BED MAX AT THIS TIME & THERE ARE 16 IN ER WAITING ON A BED, SO IT WILL TAKE A DAY OR 2 TO GET A BED FOR HER. CM WILL CONTINUE TO FOLLOW AND ASSIST NEEDED DCP [facility] KEV LAMBERT MR#: [id number] /Age/Sex/Qclixr60-Ktn-57 /65/F /S Attending Physician Name: ELLIOTT MCGOVERN [id number] Patient Account:[id number] [facility] Page -1 of 1 All edits/amendments must be made on the electronic document DICTATION DATE: 12/29/201117 FIBERGLASS DOWEL DRAWING OPERATOR: ZEFERINO 12/29/201117 RPT#: [id number] DC DATE:12/26/20 STATUS: DIS IN [facility] [address] [place] [address] END OF REPORT
== END 2020-12-26 14:45 | disposition short-term general hospital (02) | DRG 690 ==
LOC: D.ER 14:16 → D.MS 19:27
PROVIDERS: Emergency Medicine; Internal Medicine Nephrology; ADMIT Emergency Medicine; ATTEND Emergency Medicine
DX: N10 Acute pyelonephritis (principal); F17.203 Nicotine dependence unspecified, with withdrawal; D62 Acute posthemorrhagic anemia; N13.30 Unspecified hydronephrosis; C67.9 Malignant neoplasm of bladder, unspecified; Z85.528 Personal history of other malignant neoplasm of kidney; Z85.850 Personal history of malignant neoplasm of thyroid; E78.5 Hyperlipidemia, unspecified; G62.9 Polyneuropathy, unspecified; K21.9 Gastro-esophageal reflux disease without esophagitis; F41.8 Other specified anxiety disorders; N17.9 Acute kidney failure, unspecified